=== PATIENT | male | born 1950 | race Hispanic/Latino ===

== ENCOUNTER 2022-10-07 09:02 | Emergency (ER) | payer OTHER ==
--- OUTSIDE RECORDS SUMMARY | 2022-10-07 09:09 | XMS REPORT | Continuity of Care Document ---
:1950 Author Organization Formerly [facility] t Address [address] [place] [address] Care Team Providers Name Role Phone Soledad Villagran Primary Care Physician DOC SALAZAR Attending Clinician Unavailable PARVIZ PALOMINO Attending Clinician Unavailable JIMI BAKER Attending Clinician Unavailable EZEKIEL JOHNSON Attending Clinician Unavailable Soledad Villagran Attending Clinician Jimi Baker MD Attending Clinician Doctor Unassigned, [place] Attending Clinician Unavailable Chiqui Parrish Attending Clinician Rogelio Capellan MD Attending Clinician Ezekiel Johnson MD Attending Clinician 2, [facility] Attending Clinician Unavailable CHIQUI KEARNEY Attending Clinician Unavailable Lalitha Sexton MD Attending Clinician Parviz Palomino MD Attending Clinician SOLEDAD ALVES Attending Clinician Unavailable Hilario Lopez MD Attending Clinician ROGELIO CAPELLAN Attending Clinician Unavailable MEG DALLAS Attending Clinician Unavailable Meg Bennett Attending Clinician CYNDEE MEDINA Attending Clinician Chel mike Monroe RN, Claude Lemus Attending Clinician Unavailable Sky HOUSTON, Zohreh Bah Attending Clinician Unavailable OBEY BARROS Attending Clinician Unavailable Keith Casarez MD Attending Clinician [phone] KEITH CASAREZ Attending Clinician Unavailable FELIZ BILL Attending Clinician Unavailable Doc Salazar MD Attending Clinician Only, Ad[facility] Test Attending Clinician Unavailable Cyndee Medina MD Attending Clinician Lab, Ad[facility] Fam Pob I Attending Clinician Unavailable Dagoberto Mason MD Attending Clinician Sukh Laureano DO Attending Clinician DOC SALAZAR Admitting Clinician Unavailable PARVIZ PALOMINO Admitting Clinician Unavailable Doc Salazar MD Admitting Clinician Payers Payer Name Policy Type Policy Number Effective Date Expiration Date He duvall DANISH/MILTONP [id number] 2020 MEDICARE ADVANTAGE 00:00:00 Problems Condition Condition Condition Status Onset Resolution Last Treating Co mments Source Name Details Category Date Date Treatment Clinician Date Erectile Erectile Disease Active Unive rs dysfunctio dysfunctio 6-03 it y of n, n, 00:00: [place] unspecifie unspecifie 00 Me dical d erectile d erectile Br anch dysfunctio dysfunctio n type n type Primary Primary Disease Active Univers hypertensi hypertensi 6-03 it y of on on 00:00: [place] [facility] LPRD LPRD Disease Active Univers (laryngoph (laryngoph 2-10 it y of aryngeal aryngeal 00:00: [place] reflux reflux 00 Medical disease) disease) Branch Fatty Fatty Disease Active Univers liver liver 4-28 ity of 00:00: [place] [facility] Abnormal Abnormal Disease Active Unive rs liver liver 4-14 ity of function function 00:00: [place] tests tests 00 Medical Branch Other Other Disease Active Univers hyperlipid hyperlipid 4-12 it y of emia emia 00:00: [place] [facility] Elevated Elevated Disease Active Overview: Un lino prostate prostate 3-31 Formatt[place] ity of specific specific 00:00: g of this [place] as antigen antigen 00 note Medical (PSA) (PSA) might be Branch different from the original. Added automatic ally from request for surgery [id number] Sensorineu Sensorineu Disease Active U nivers ral ral 3-13 ity of hearing hearing 00:00: [place] loss loss 00 Medical [place] Chronic Chronic Disease Active Univers vertigo vertigo 3-13 ity of 00:00: [place] 00 [facility] Coronary Coronary Disease Active Unive rs artery artery ity of disease disease [facility] History of History of Disease Active U nivers acute acute ity of myocardial [facility] [place] [facility] All[facility]ies, Adverse Reactions, Alerts Allergy Allergy Status Severity Reaction(s) Onset Inactive Treating Comm ents Source Name Type Date Date Clinician NO KNOWN Drug Active Univers ALLERGIE Class ity of S [facility] Social History Social Habit Start Date Stop Date Quantity Comments Source Gender identity [facility] Sexual orientation [facility] to 2022-08-07 2022-08-17 Not sure [facility] SARS-CoV-2 (event) 00:00:00 12:36:00 [facility] Alcohol intake 2022-03-26 2022-03-26 1.43 /d University 00:00:00 00:00:00 [facility] History of Social 2022-03-26 2022-03-26 Univers ity of function 00:00:00 00:00:00 [facility] Tobacco use and 2020-01-07 2020-01-07 Smokeless Universit y of exposure 00:00:00 00:00:00 tobacco non-user [facility] Sex Ass[birth year] Universit y of 00:00:00 00:00:00 [facility] Smoking Status Start Date Stop Date Source Never smoked tobacco [facility] Medications Ordered Filled Start Stop Current Ordering Indication Dosage Frequency Signature Comments Components Source Medication Medication Date Date Medication? Clinician (SIG) Name Name ATORVASTATI Yes [id number] TAKE 1 Univers N 80 mg 7-10 TABLET BY ity of tablet 00:00: MOUTH AT [place] 00 BEDTIME . [facility] Branch T REQUIRED FOR FUTURE REFILLS atorvastati Yes [id number] 80mg Take 1 Univers n 80 mg 6-01 tablet by ity of tablet 00:00: mouth at [place] [address] bedtime. Medical MUST BE Branch SEEN FOR FURTHER REFILLS atorvastati Yes [id number] 80mg Take 1 Univers n 80 mg 6-01 tablet by ity of tablet 00:00: mouth at [place] 00 bedtime. Medical MUST BE Branch SEEN FOR FURTHER REFILLS atorvastati 2022- No [id number] 80mg Take 1 Univers n 80 mg 6-01 07-10 tablet by ity of tablet 00:00: 00:00 mouth at [place] 00 :00 bedtime. Medical MUST BE Branch SEEN FOR FURTHER REFILLS atorvastati Yes [id number] 80mg Take 1 Univers n 80 mg 4-25 tablet by ity of tablet 00:00: mouth at [place] [address] bedtime. Medical MUST BE Branch SEEN FOR FURTHER REFILLS atorvastati 2022- No [id number] 80mg Take 1 Univers n 80 mg 4-25 06- tablet by ity of tablet 00:00: 00:00 mouth at [place] 00 :00 bedtime. Medical MUST BE Branch SEEN FOR FURTHER REFILLS metoprolol Yes [id number] 12.5mg Take 0.5 Univers tartrate 25 4-24 tablets by it y of mg tablet 00:00: mouth [place] (two) Medical times Branch daily. metoprolol Yes [id number] 12.5mg Take 0.5 Univers tartrate 25 4-24 tablets by it y of mg tablet 00:00: mouth [place] (two) Medical times Branch daily. metoprolol 0 Yes [id number] 12.5mg Take 0.5 Univers tartrate 25 4-24 tablets by it y of mg tablet 00:00: mouth [place] (two) Medical times Branch daily. TADALAFIL Yes TAKE 1 Univer s 20 mg 4-24 TABLET BY ity of tablet 00:00: MOUTH 00 EVERY 72 Medical HOURS Branch NEEDED FOR ERECTILE DYSFUNCTIO N ( NO MORE THAN 1 TABLET EVERY 3 DAYS DIRECTED ) metoprolol Yes [id number] 12.5mg Take 0.5 Univers tartrate 25 4-24 tablets by it y of mg tablet 00:00: mouth (two) Medical times Branch daily. TADALAFIL 2023-0 Yes TAKE 1 Univer s 20 mg 4-24 TABLET BY ity of tablet 00:00: MOUTH EVERY 72 Medical HOURS Branch NEEDED FOR ERECTILE DYSFUNCTIO N ( NO MORE THAN 1 TABLET EVERY 3 DAYS DIRECTED ) metoprolol 2023-0 Yes [id number] 12.5mg Take 0.5 Univers tartrate 25 4-24 tablets by it y of mg tablet 00:00: mouth (two) Medical times Branch daily. TADALAFIL 2023-0 Yes TAKE 1 Univer s 20 mg 4-24 TABLET BY ity of tablet 00:00: MOUTH EVERY 72 Medical HOURS Branch NEEDED FOR ERECTILE DYSFUNCTIO N ( NO MORE THAN 1 TABLET EVERY 3 DAYS DIRECTED ) metoprolol 2023-0 Yes [id number] 12.5mg Take 0.5 Univers tartrate 25 4-24 tablets by it y of mg tablet 00:00: mouth (two) Medical times Branch daily. TADALAFIL 2023-0 Yes TAKE 1 Univer s 20 mg 4-24 TABLET BY ity of tablet 00:00: MOUTH EVERY 72 Medical HOURS Branch NEEDED FOR ERECTILE DYSFUNCTIO N ( NO MORE THAN 1 TABLET EVERY 3 DAYS DIRECTED ) metoprolol 2023-0 Yes [id number] 12.5mg Take 0.5 Univers tartrate 25 4-24 tablets by it y of mg tablet 00:00: (two) Medical times Branch daily. TADALAFIL 2023-0 Yes TAKE 1 Univer s 20 mg 4-24 TABLET BY ity of tablet 00:00: MOUTH EVERY 72 Medical HOURS Branch NEEDED FOR ERECTILE DYSFUNCTIO N ( NO MORE THAN 1 TABLET EVERY 3 DAYS DIRECTED ) metoprolol 2023-0 Yes [id number] 12.5mg Take 0.5 Univers tartrate 25 4-24 tablets by it y of mg tablet 00:00: mouth (two) Medical times Branch daily. TADALAFIL 2023-0 Yes TAKE 1 Univer s 20 mg 4-24 TABLET BY ity of tablet 00:00: MOUTH EVERY 72 Medical HOURS Branch NEEDED FOR ERECTILE DYSFUNCTIO N ( NO MORE THAN 1 TABLET EVERY 3 DAYS DIRECTED ) metoprolol 2022-0 Yes [id number] 12.5mg Take 0.5 Univers tartrate 25 3-17 tablets by it y of mg tablet 00:00: mouth 2 (two) Medical times Branch daily. metoprolol 0 Yes [id number] 12.5mg Take 0.5 Univers tartrate 25 3-17 tablets by it y of mg tablet 00:00: mouth 2 (two) Medical times Branch daily. metoprolol 2022- No [id number] 12.5mg Take 0.5 Univers tartrate 25 3-17 04-24 tablets by i ty of mg tablet 00:00: 00:[place] ([place] Medical times Branch daily. metoprolol 2022-0 3- No [id number] 12.5mg Take 0.5 Univers tartrate 25 3-17 04-24 tablets by i ty of mg tablet 00:00: 00:[place] (two[place] Medical times Branch daily. METOPROLOL Yes [id number] 12.5mg Take 0.5 Univers TARTRATE 25 2-17 tablets by it y of mg tablet 00:00: mouth 2 (two) Medical times Branch daily. METOPROLOL 0 2022- No [id number] 12.5mg Take 0.5 Univers TARTRATE 25 2-17 03-17 tablets by i ty of mg tablet 00:00: 00:00 [place] (two[place] Medical times Branch daily. triamcinolo Yes [id number] Apply to Univers ne 2-14 area(s) 2 ity of acetonide 00:00: (two) [place] 0.1 % cream 00 times Medical daily. Branch hydrocortis Yes [id number] Apply to Univers one 2.5 % 2-14 area(s) 2 ity o f cream 00:00: (two) [place] 00 times Medical daily as Branch needed for Rash or Itching. Stop when clear, restart if rash returns. ketoconazol Yes [id number] Apply to Univers e 2 % cream 2-14 area(s) ity o f 00:00: daily. [place] [address] Medical Branch triamcinolo 2023-0 Yes [id number] Apply to Univers ne 2-14 area(s) 2 ity of acetonide 00:00: (two) [place] 0.1 % cream 00 times Medical daily. Branch hydrocortis 2023-0 Yes [id number] Apply to Univers one 2.5 % 2-14 area(s) 2 ity o f cream 00:00: (two) [place] 00 times Medical daily as Branch needed for Rash or Itching. Stop when clear, restart if rash returns. ketoconazol 2023-0 Yes [id number] Apply to Univers e 2 % cream 2-14 area(s) ity o f 00:00: daily. [place] [facility] triamcinolo 2023-0 Yes [id number] Apply to Univers ne 2-14 area(s) 2 ity of acetonide 00:00: (two) [place] 0.1 % cream 00 times Medical daily. Branch hydrocortis 2023-0 Yes [id number] Apply to Univers one 2.5 % 2-14 area(s) 2 ity o f cream 00:00: (two) [place] 00 times Medical daily as Branch needed for Rash or Itching. Stop when clear, restart if rash returns. ketoconazol 3-0 Yes [id number] Apply to Univers e 2 % cream 2-14 area(s) ity o f 00:00: daily. [place] [facility] triamcinolo 2023-0 Yes [id number] Apply to Univers ne 2-14 area(s) 2 ity of acetonide 00:00: (two) [place] 0.1 % cream 00 times Medical daily. Branch hydrocortis 2023-0 Yes [id number] Apply to Univers one 2.5 % 2-14 area(s) 2 ity o f cream 00:00: (two) [place] 00 times Medical daily as Branch needed for Rash or Itching. Stop when clear, restart if rash returns. ketoconazol 2023-0 Yes [id number] Apply to Univers e 2 % cream 2-14 area(s) ity o f 00:00: daily. [place] [facility] triamcinolo 2023-0 Yes [id number] Apply to Univers ne 2-14 area(s) 2 ity of acetonide 00:00: (two) [place] 0.1 % cream 00 times Medical daily. Branch hydrocortis 2023-0 Yes [id number] Apply to Univers one 2.5 % 2-14 area(s) 2 ity o f cream 00:00: (two) [place] 00 times Medical daily as Branch needed for Rash or Itching. Stop when clear, restart if rash returns. ketoconazol 2023-0 Yes [id number] Apply to Univers e 2 % cream 2-14 area(s) ity o f 00:00: daily. [place] [facility] triamcinolo 2023-0 Yes [id number] Apply to Univers ne 2-14 area(s) 2 ity of acetonide 00:00: (two) [place] 0.1 % cream 00 times Medical daily. Branch hydrocortis 2023-0 Yes [id number] Apply to Univers one 2.5 % 2-14 area(s) 2 ity o f cream 00:00: (two) [place] 00 times Medical daily as Branch needed for Rash or Itching. Stop when clear, restart if rash returns. ketoconazol 2023-0 Yes [id number] Apply to Univers e 2 % cream 2-14 area(s) ity o f 00:00: daily. [place] [facility] triamcinolo 2023-0 Yes [id number] Apply to Univers ne 2-14 area(s) 2 ity of acetonide 00:00: (two) [place] 0.1 % cream 00 times Medical daily. Branch hydrocortis 2023-0 Yes [id number] Apply to Univers one 2.5 % 2-14 area(s) 2 ity o f cream 00:00: (two) [place] 00 times Medical daily as Branch needed for Rash or Itching. Stop when clear, restart if rash returns. ketoconazol 2023-0 Yes [id number] Apply to Univers e 2 % cream 2-14 area(s) ity o f 00:00: daily. [place] [facility] triamcinolo 2023-0 Yes [id number] Apply to Univers ne 2-14 area(s) 2 ity of acetonide 00:00: (two) [place] 0.1 % cream 00 times Medical daily. Branch hydrocortis 2023-0 Yes [id number] Apply to Univers one 2.5 % 2-14 area(s) 2 ity o f cream 00:00: (two) [place] 00 times Medical daily as Branch needed for Rash or Itching. Stop when clear, restart if rash returns. ketoconazol 2023-0 Yes [id number] Apply to Univers e 2 % cream 2-14 area(s) ity o f 00:00: daily. [place] [facility] triamcinolo 2023-0 Yes [id number] Apply to Univers ne 2-14 area(s) 2 ity of acetonide 00:00: (two) [place] 0.1 % cream 00 times Medical daily. Branch hydrocortis 2023-0 Yes [id number] Apply to Univers one 2.5 % 2-14 area(s) 2 ity o f cream 00:00: (two) [place] 00 times Medical daily as Branch needed for Rash or Itching. Stop when clear, restart if rash returns. ketoconazol 2023-0 Yes [id number] Apply to Univers e 2 % cream 2-14 area(s) ity o f 00:00: daily. [place] [facility] triamcinolo 2023-0 Yes [id number] Apply to Univers ne 2-14 area(s) 2 ity of acetonide 00:00: (two) [place] 0.1 % cream 00 times Medical daily. Branch hydrocortis 2023-0 Yes [id number] Apply to Univers one 2.5 % 2-14 area(s) 2 ity o f cream 00:00: (two) [place] 00 times Medical daily as Branch needed for Rash or Itching. Stop when clear, restart if rash returns. ketoconazol 2023-0 Yes [id number] Apply to Univers e 2 % cream 2-14 area(s) ity o f 00:00: daily. [place] [facility] triamcinolo 2023-0 Yes [id number] Apply to Univers ne 2-14 area(s) 2 ity of acetonide 00:00: (two) [place] 0.1 % cream 00 times Medical daily. Branch hydrocortis 2023-0 Yes [id number] Apply to Univers one 2.5 % 2-14 area(s) 2 ity o f cream 00:00: (two) [place] 00 times Medical daily as Branch needed for Rash or Itching. Stop when clear, restart if rash returns. ketoconazol 2023-0 Yes [id number] Apply to Univers e 2 % cream 2-14 area(s) ity o f 00:00: daily. Medical Branch triamcinolo 2023-0 Yes [id number] Apply to Univers ne 2-14 area(s) 2 ity of acetonide 00:00: (two) [place] 0.1 % cream 00 times Medical daily. Branch hydrocortis 3-0 Yes [id number] Apply to Univers one 2.5 % 2-14 area(s) 2 ity o f cream 00:00: (two) [place] 00 times Medical daily as Branch needed for Rash or Itching. Stop when clear, restart if rash returns. ketoconazol 3-0 Yes [id number] Apply to Univers e 2 % cream 2-14 area(s) ity o f 00:00: daily. Medical Branch triamcinolo 3-0 Yes [id number] Apply to Univers ne 2-14 area(s) 2 ity of acetonide 00:00: (two) [place] 0.1 % cream 00 times Medical daily. Branch hydrocortis 3-0 Yes [id number] Apply to Univers one 2.5 % 2-14 area(s) 2 ity o f cream 00:00: (two) [place] 00 times Medical daily as Branch needed for Rash or Itching. Stop when clear, restart if rash returns. ketoconazol 3-0 Yes [id number] Apply to Univers e 2 % cream 2-14 area(s) ity o f 00:00: daily. Medical Branch tadalafiL 2021-1 Yes 20mg Take 1 Univer s 20 mg 0-12 tablet by ity of tablet 00:00: mouth as [place] 00 needed for Medical Erectile Branch dysfunctio n (No more than 1 tablet every 3 days). tadalafiL 2022-1 Yes 20mg Take 1 Univer s 20 mg 0-12 tablet by ity of tablet 00:00: mouth as [place] 00 needed for Medical Erectile Branch dysfunctio n (No more than 1 tablet every 3 days). tadalafiL 2-1 Yes 20mg Take 1 Univer s 20 mg 0-12 tablet by ity of tablet 00:00: mouth as [place] 00 needed for Medical Erectile Branch dysfunctio n (No more than 1 tablet every 3 days). tadalafiL 2021-03 Yes 20mg Take 1 Univer s 20 mg 0-12 tablet by ity of tablet 00:00: mouth as [place] 00 needed for Medical Erectile Branch dysfunctio n (No more than 1 tablet every 3 days). tadalafiL 2021-03 Yes 20mg Take 1 Univer s 20 mg 0-12 tablet by ity of tablet 00:00: mouth as [place] 00 needed for Medical Erectile Branch dysfunctio n (No more than 1 tablet every 3 days). tadalafiL 2021-03 Yes 20mg Take 1 Univer s 20 mg 0-12 tablet by ity of tablet 00:00: mouth as [place] 00 needed for Medical Erectile Branch dysfunctio n (No more than 1 tablet every 3 days). tadalafiL 2021-03 Yes 20mg Take 1 Univer s 20 mg 0-12 tablet by ity of tablet 00:00: mouth as [place] 00 needed for Medical Erectile Branch dysfunctio n (No more than 1 tablet every 3 days). tadalafiL 2021-03 Yes 20mg Take 1 Univer s 20 mg 0-12 tablet by ity of tablet 00:00: mouth as [place] 00 needed for Medical Erectile Branch dysfunctio n (No more than 1 tablet every 3 days). tadalafiL 2021-03 Yes 20mg Take 1 Univer s 20 mg 0-12 tablet by ity of tablet 00:00: mouth as [place] 00 needed for Medical Erectile Branch dysfunctio n (No more than 1 tablet every 3 days). tadalafiL 2021-03 Yes 20mg Take 1 Univer s 20 mg 0-12 tablet by ity of tablet 00:00: mouth as [place] 00 needed for Medical Erectile Branch dysfunctio n (No more than 1 tablet every 3 days). tadalafiL 2021-1 Yes 20mg Take 1 Univer s 20 mg 0-12 tablet by ity of tablet 00:00: mouth as [place] 00 needed for Medical Erectile Branch dysfunctio n (No more than 1 tablet every 3 days). tadalafiL 2021- Yes 20mg Take 1 Univer s 20 mg 0-12 tablet by ity of tablet 00:00: mouth as [place] 00 needed for Medical Erectile Branch dysfunctio n (No more than 1 tablet every 3 days). tadalafiL 2-1 Yes 20mg Take 1 Univer s 20 mg 0-12 tablet by ity of tablet 00:00: mouth as [place] 00 needed for Medical Erectile Branch dysfunctio n (No more than 1 tablet every 3 days). tadalafiL 2021-1 Yes 20mg Take 1 Univer s 20 mg 0-12 tablet by ity of tablet 00:00: mouth as [place] 00 needed for Medical Erectile Branch dysfunctio n (No more than 1 tablet every 3 days). tadalafiL 2021-1 2022- No 20mg Take 1 Unive rs 20 mg 0-12 04-24 tablet by ity of tablet 00:00: 00:00 mouth as [place] 00 :00 needed for Medical Erectile Branch dysfunctio n (No more than 1 tablet every 3 days). tadalafiL 2022-0 2022- No 20mg Take 20 mg U nivers 20 mg 6-06 06-06 by mouth ity of tablet 17:02: 00:00 as needed [place] 50 :00 for Medical Erectile Branch dysfunctio n. tadalafiL 2022-0 Yes 20mg Take 1 Univer s 20 mg 6-06 tablet by ity of tablet 00:00: mouth as [place] 00 needed for Medical Erectile Branch dysfunctio n (No more than 1 tablet every 3 days). tadalafiL 2022-0 Yes 20mg Take 1 Univer s 20 mg 6-06 tablet by ity of tablet 00:00: mouth as [place] 00 needed for Medical Erectile Branch dysfunctio n (No more than 1 tablet every 3 days). tadalafiL 2022-0 Yes 20mg Take 1 Univer s 20 mg 6-06 tablet by ity of tablet 00:00: mouth as [place] 00 needed for Medical Erectile Branch dysfunctio n (No more than 1 tablet every 3 days). tadalafiL 2022-0 Yes 20mg Take 1 Univer s 20 mg 6-06 tablet by ity of tablet 00:00: mouth as [place] 00 needed for Medical Erectile Branch dysfunctio n (No more than 1 tablet every 3 days). tadalafiL 2022-0 Yes 20mg Take 1 Univer s 20 mg 6-06 tablet by ity of tablet 00:00: mouth as [place] 00 needed for Medical Erectile Branch dysfunctio n (No more than 1 tablet every 3 days). tadalafiL 2022-0 Yes 20mg Take 1 Univer s 20 mg 6-06 tablet by ity of tablet 00:00: mouth as [place] 00 needed for Medical Erectile Branch dysfunctio n (No more than 1 tablet every 3 days). tadalafiL 2022-0 Yes 20mg Take 1 Univer s 20 mg 6-06 tablet by ity of tablet 00:00: mouth as [place] 00 needed for Medical Erectile Branch dysfunctio n (No more than 1 tablet every 3 days). tadalafiL 2022-0 2022- No 20mg Take 1 Unive rs 20 mg 6-06 10-12 tablet by ity of tablet 00:00: 00:00 mouth as [place] 00 :00 needed for Medical Erectile Branch dysfunctio n (No more than 1 tablet every 3 days). aspirin 2021-0 Yes 81mg Take 81 mg Univ ers (ADULT LOW 6-03 by mouth ity o f DOSE 15:12: daily. [place] ASPIRIN) 81 31 Medical mg EC Branch tablet ascorbic 2021-0 Yes Take by Univer s acid 6-03 mouth ity of (VITAMIN C 15:12: daily. [place] ORAL) 31 Medical Branch ZINC ORAL 2021-0 Yes Take by Unive rs 6-03 mouth. ity of 15:12: [place] 31 Medical Branch calcium 2021-0 Yes Take by Univers carbonate/v 6-03 mouth ity of itamin D3 15:12: daily. [place] (VITAMIN 31 Medical D-3 ORAL) Branch MAGNESIUM 2021-0 Yes Take by Unive rs ORAL 6-03 mouth. ity of 15:12: [place] 31 Medical Branch aspirin 2-0 Yes 81mg Take 81 mg Univ ers (ADULT LOW 6-03 by mouth ity o f DOSE 15:12: daily. [place] ASPIRIN) 81 31 Medical mg EC Branch tablet ascorbic 2-0 Yes Take by Univer s acid 6-03 mouth ity of (VITAMIN C 15:12: daily. [place] ORAL) 31 Medical Branch ZINC ORAL 2-0 Yes Take by Unive rs 6-03 mouth. ity of 15:12: [place] 31 Medical Branch calcium 2-0 Yes Take by Univers carbonate/v 6-03 mouth ity of itamin D3 15:12: daily. [place] (VITAMIN 31 Medical D-3 ORAL) Branch MAGNESIUM 2021-0 Yes Take by Unive rs ORAL 6-03 mouth. ity of 15:12: [place] [address] Medical Branch aspirin 2021-0 Yes 81mg Take 81 mg Univ ers (ADULT LOW 6-03 by mouth ity o f DOSE 15:12: daily. [place] ASPIRIN) 81 31 Medical mg EC Branch tablet ascorbic 2021-0 Yes Take by Univer s acid 6-03 mouth ity of (VITAMIN C 15:12: daily. [place] ORAL) 31 Medical Branch ZINC ORAL 2021-0 Yes Take by Unive rs 6-03 mouth. ity of 15:12: [place] [address] Medical Branch calcium 2021-0 Yes Take by Univers carbonate/v 6-03 mouth ity of itamin D3 15:12: daily. [place] (VITAMIN 31 Medical D-3 ORAL) Branch MAGNESIUM 2021-0 Yes Take by Unive rs ORAL 6-03 mouth. ity of 15:12: [place] [address] Medical Branch aspirin 2021-0 Yes 81mg Take 81 mg Univ ers (ADULT LOW 6-03 by mouth ity o f DOSE 15:12: daily. [place] ASPIRIN) 81 31 Medical mg EC Branch tablet ascorbic 2021-0 Yes Take by Univer s acid 6-03 mouth ity of (VITAMIN C 15:12: daily. [place] ORAL) Medical Branch ZINC ORAL 2021-0 Yes Take by Unive rs 6-03 mouth. ity of 15:12: [place] [address] Medical Branch calcium 2021-0 Yes Take by Univers carbonate/v 6-03 mouth ity of itamin D3 15:12: daily. [place] (VITAMIN 31 Medical D-3 ORAL) Branch MAGNESIUM 2021-0 Yes Take by Unive rs ORAL 6-03 mouth. ity of 15:12: [place] [address] Medical Branch aspirin 2021-0 Yes 81mg Take 81 mg Univ ers (ADULT LOW 6-03 by mouth ity o f DOSE 15:12: daily. [place] ASPIRIN) 81 31 Medical mg EC Branch tablet ascorbic 2021-0 Yes Take by Univer s acid 6-03 mouth ity of (VITAMIN C 15:12: daily. [place] ORAL) Medical Branch ZINC ORAL 2021-0 Yes Take by Unive rs 6-03 mouth. ity of 15:12: [place] [address] Medical Branch calcium 2021-0 Yes Take by Univers carbonate/v 6-03 mouth ity of itamin D3 15:12: daily. [place] (VITAMIN 31 Medical D-3 ORAL) Branch MAGNESIUM 0 Yes Take by Unive rs ORAL 6-03 mouth. ity of 15:12: [place] [address] Medical Branch aspirin 0 Yes 81mg Take 81 mg Univ ers (ADULT LOW 6-03 by mouth ity o f DOSE 15:12: daily. [place] ASPIRIN) 81 31 Medical mg EC Branch tablet ascorbic 0 Yes Take by Univer s acid 6-03 mouth ity of (VITAMIN C 15:12: daily. [place] ORAL) Medical Branch ZINC ORAL 0 Yes Take by Unive rs 6-03 mouth. ity of 15:12: [place] [address] Medical Branch calcium 0 Yes Take by Univers carbonate/v 6-03 mouth ity of itamin D3 15:12: daily. [place] (VITAMIN 31 Medical D-3 ORAL) Branch MAGNESIUM 0 Yes Take by Unive rs ORAL 6-03 mouth. ity of 15:12: [place] [address] Medical Branch aspirin 0 Yes 81mg Take 81 mg Univ ers (ADULT LOW 6-03 by mouth ity o f DOSE 15:12: daily. [place] ASPIRIN) 81 31 Medical mg EC Branch tablet ascorbic 0 Yes Take by Univer s acid 6-03 mouth ity of (VITAMIN C 15:12: daily. [place] ORAL) Medical Branch ZINC ORAL 0 Yes Take by Unive rs 6-03 mouth. ity of 15:12: [place] [address] Medical Branch calcium 0 Yes Take by [facility] carbonate/v 6-03 mouth ity of itamin D3 15:12: daily. [place] (VITAMIN 31 Medical D-3 ORAL) Branch MAGNESIUM 0 Yes Take by Unive rs ORAL 6-03 mouth. ity of 15:12: [place] [address] Medical Branch aspirin 0 Yes 81mg Take 81 mg Univ ers (ADULT LOW 6-03 by mouth ity o f DOSE 15:12: daily. [place] ASPIRIN) 81 31 Medical mg EC Branch tablet ascorbic 2021-0 Yes Take by [facility] acid 6-03 mouth ity of (VITAMIN C 15:12: daily. [place] ORAL) Medical Branch ZINC ORAL 2021-0 Yes Take by Unive rs 6-03 mouth. ity of 15:12: [place] [address] Medical Branch calcium 0 Yes Take by [facility] carbonate/v 6-03 mouth ity of itamin D3 15:12: daily. [place] (VITAMIN 31 Medical D-3 ORAL) Branch MAGNESIUM 0 Yes Take by Unive rs ORAL 6-03 mouth. ity of 15:12: [place] [address] Medical Branch aspirin 0 Yes 81mg Take 81 mg Univ ers (ADULT LOW 6-03 by mouth ity o f DOSE 15:12: daily. [place] ASPIRIN) 81 31 Medical mg EC Branch tablet ascorbic 0 Yes Take by [facility]iver [facility] acid 6-03 mouth ity of (VITAMIN C 15:12: daily. [place] ORAL) Medical Branch ZINC ORAL 0 Yes Take by [facility]ive rs 6-03 mouth. ity of 15:12: [place] [address] Medical Branch calcium 0 Yes Take by [facility] carbonate/v 6-03 mouth ity of itamin D3 15:12: daily. [place] (VITAMIN 31 Medical D-3 ORAL) Branch MAGNESIUM 0 Yes Take by [facility]ive rs ORAL 6-03 mouth. ity of 15:12: [place] [address] Medical Branch aspirin 0 Yes 81mg Take 81 mg Univ ers (ADULT LOW 6-03 by mouth ity o f DOSE 15:12: daily. [place] ASPIRIN) 81 31 Medical mg EC Branch tablet ascorbic 2021-0 Yes Take by Univer s acid 6-03 mouth ity of (VITAMIN C 15:12: daily. [place] ORAL) Medical Branch ZINC ORAL 0 Yes Take by Unive rs 6-03 mouth. ity of 15:12: [place] [address] Medical Branch calcium 0 Yes Take by [facility] carbonate/v 6-03 mouth ity of itamin D3 15:12: daily. [place] (VITAMIN 31 Medical D-3 ORAL) Branch MAGNESIUM 0 Yes Take by [facility]ive rs ORAL 6-03 mouth. ity of 15:12: [place] [address] Medical Branch aspirin 2021-0 Yes 81mg Take 81 mg Univ ers (ADULT LOW 6-03 by mouth ity o f DOSE 15:12: daily. [place] ASPIRIN) 81 31 Medical mg EC [facility] tablet ascorbic 2021-0 Yes Take by Univer s acid 6-03 mouth ity of (VITAMIN C 15:12: daily. [place] ORAL) Medical Branch ZINC ORAL 2021-0 Yes Take by Unive rs 6-03 mouth. ity of 15:12: [place] [address] Medical Branch calcium 0 Yes Take by [facility] carbonate/v 6-03 mouth ity of itamin D3 15:12: daily. [place] (VITAMIN 31 Medical D-3 ORAL) Branch MAGNESIUM 0 Yes Take by [facility]ive rs ORAL 6-03 mouth. ity of 15:12: [place] [address] Medical Branch aspirin 0 Yes 81mg Take 81 mg Univ ers (ADULT LOW 6-03 by mouth ity o f DOSE 15:12: daily. [place] ASPIRIN) 81 31 Medical mg EC Branch tablet ascorbic 0 Yes Take by Univer s acid 6-03 mouth ity of (VITAMIN C 15:12: daily. [place] ORAL) Medical Branch ZINC ORAL 0 Yes Take by Unive rs 6-03 mouth. ity of 15:12: [place] [address] [facility] [place] calcium 0 Yes Take by [facility] carbonate/v 6-03 mouth ity of itamin D3 15:12: daily. [place] (VITAMIN 31 Medical D-3 ORAL) Branch MAGNESIUM 0 Yes Take by [facility] rs ORAL 6-03 mouth. ity of 15:12: [place] [address] Medical Branch aspirin 0 Yes 81mg Take 81 mg Univ ers (ADULT LOW 6-03 by mouth ity o f DOSE 15:12: daily. [place] ASPIRIN) 81 31 Medical mg EC Branch tablet ascorbic 2021-0 Yes Take by [facility]iver [facility] acid 6-03 mouth ity of (VITAMIN C 15:12: daily. [place] ORAL) Medical Branch ZINC ORAL 0 Yes Take by Unive rs 6-03 mouth. ity of 15:12: [place] [address] Medical Branch calcium 0 Yes Take by [facility] carbonate/v 6-03 mouth ity of itamin D3 15:12: daily. [place] (VITAMIN 31 Medical D-3 ORAL) Branch MAGNESIUM 0 Yes Take by [facility]ive rs ORAL 6-03 mouth. ity of 15:12: [place] [address] Medical Branch aspirin 2021-0 Yes 81mg Take 81 mg Univ ers (ADULT LOW 6-03 by mouth ity o f DOSE 15:12: daily. [place] ASPIRIN) 81 31 Medical mg EC Branch tablet ascorbic 2021-0 Yes Take by Univer s acid 6-03 mouth ity of (VITAMIN C 15:12: daily. [place] ORAL) Medical Branch ZINC ORAL 0 Yes Take by Unive rs 6-03 mouth. ity of 15:12: [place] [address] Medical Branch calcium 2021-0 Yes Take by [facility] carbonate/v 6-03 mouth ity of itamin D3 15:12: daily. [place] (VITAMIN 31 Medical D-3 ORAL) Branch MAGNESIUM 2021-0 Yes Take by [facility]ive rs ORAL 6-03 mouth. ity of 15:12: [place] [address] Medical Branch aspirin 2021-0 Yes 81mg Take 81 mg Univ ers (ADULT LOW 6-03 by mouth ity o f DOSE 15:12: daily. [place] ASPIRIN) 81 31 Medical mg EC [facility] tablet ascorbic 2021-0 Yes Take by Univer s acid 6-03 mouth ity of (VITAMIN C 15:12: daily. [place] ORAL) 31 Medical Branch ZINC ORAL 2021-0 Yes Take by Unive rs 6-03 mouth. ity of 15:12: [place] [address] Medical Branch calcium 2021-0 Yes Take by [facility] carbonate/v 6-03 mouth ity of itamin D3 15:12: daily. [place] (VITAMIN 31 Medical D-3 ORAL) Branch MAGNESIUM 0 Yes Take by Unive rs ORAL 6-03 mouth. ity of 15:12: [place] [address] [facility] Branch aspirin 0 Yes 81mg Take 81 mg Univ ers (ADULT LOW 6-03 by mouth ity o f DOSE 15:12: daily. [place] ASPIRIN) 81 31 Medical mg EC Branch tablet ascorbic 2021-0 Yes Take by Univer s acid 6-03 mouth ity of (VITAMIN C 15:12: daily. [place] ORAL) 31 Medical Branch ZINC ORAL 2021-0 Yes Take by Unive rs 6-03 mouth. ity of 15:12: [place] [address] Medical Branch calcium 2021-0 Yes Take by [facility] carbonate/v 6-03 mouth ity of itamin D3 15:12: daily. [place] (VITAMIN 31 Medical D-3 ORAL) Branch MAGNESIUM 2021-0 Yes Take by [facility]ive rs ORAL 6-03 mouth. ity of 15:12: [place] [address] Medical Branch aspirin 2021-0 Yes 81mg Take 81 mg Univ ers (ADULT LOW 6-03 by mouth ity o f DOSE 15:12: daily. [place] ASPIRIN) 81 31 Medical mg EC Branch tablet ascorbic 2021-0 Yes Take by Univer s acid 6-03 mouth ity of (VITAMIN C 15:12: daily. [place] ORAL) 31 Medical Branch ZINC ORAL 2021-0 Yes Take by Unive rs 6-03 mouth. ity of 15:12: [place] [address] Medical Branch calcium 2021-0 Yes Take by [facility] carbonate/v 6-03 mouth ity of itamin D3 15:12: daily. [place] (VITAMIN 31 Medical D-3 ORAL) Branch MAGNESIUM 2021-0 Yes Take by [facility] rs ORAL 6-03 mouth. ity of 15:12: [place] [address] Medical Branch aspirin 2021-0 Yes 81mg Take 81 mg Univ ers (ADULT LOW 6-03 by mouth ity o f DOSE 15:12: daily. [place] ASPIRIN) 81 31 Medical mg EC [facility] tablet ascorbic 2021-0 Yes Take by [facility]iver s acid 6-03 mouth ity of (VITAMIN C 15:12: daily. [place] ORAL) 31 Medical Branch ZINC ORAL 2021-0 Yes Take by Unive rs 6-03 mouth. ity of 15:12: [place] [address] Medical Branch calcium 2021-0 Yes Take by [facility] carbonate/v 6-03 mouth ity of itamin D3 15:12: daily. [place] (VITAMIN 31 Medical D-3 ORAL) Branch MAGNESIUM 2021-0 Yes Take by [facility]ive rs ORAL 6-03 mouth. ity of 15:12: [place] [address] Medical Branch aspirin 2021-0 Yes 81mg Take 81 mg Univ ers (ADULT LOW 6-03 by mouth ity o f DOSE 15:12: daily. [place] ASPIRIN) 81 31 Medical mg EC [facility] tablet ascorbic 2021-0 Yes Take by Univer s acid 6-03 mouth ity of (VITAMIN C 15:12: daily. [place] ORAL) 31 Medical Branch ZINC ORAL 2021-0 Yes Take by Unive rs 6-03 mouth. ity of 15:12: [place] [address] Medical Branch calcium 2021-0 Yes Take by [facility] carbonate/v 6-03 mouth ity of itamin D3 15:12: daily. [place] (VITAMIN 31 Medical D-3 ORAL) Branch MAGNESIUM 2021-0 Yes Take by Unive rs ORAL 6-03 mouth. ity of 15:12: [place] [address] Medical Branch aspirin 2021-0 Yes 81mg Take 81 mg Univ ers (ADULT LOW 6-03 by mouth ity o f DOSE 15:12: daily. [place] ASPIRIN) 81 31 Medical mg EC Branch tablet ascorbic 2022-0 Yes Take by Unive rs acid 6-03 mouth ity of (VITAMIN C 15:12: daily. [place] ORAL) 31 Medical Branch ZINC ORAL 2021-0 Yes Take by Unive rs 6-03 mouth. ity of 15:12: [place] [address] Medical Branch calcium 0 Yes Take by [facility] carbonate/v 6-03 mouth ity of itamin D3 15:12: daily. [place] (VITAMIN 31 Medical D-3 ORAL) Branch MAGNESIUM 0 Yes Take by Unive rs ORAL 6-03 mouth. ity of 15:12: [place] [address] Medical Branch aspirin 0 Yes 81mg Take 81 mg Univ ers (ADULT LOW 6-03 by mouth ity o f DOSE 15:12: daily. [place] ASPIRIN) 81 31 Medical mg EC Branch tablet ascorbic 2021-0 Yes Take by Univer s acid 6-03 mouth ity of (VITAMIN C 15:12: daily. [place] ORAL) Medical Branch ZINC ORAL 0 Yes Take by Unive rs 6-03 mouth. ity of 15:12: [place] [address] Medical Branch calcium 0 Yes Take by [facility] carbonate/v 6-03 mouth ity of itamin D3 15:12: daily. [place] (VITAMIN 31 Medical D-3 ORAL) Branch MAGNESIUM 0 Yes Take by Unive rs ORAL 6-03 mouth. ity of 15:12: [place] [address] Medical Branch aspirin 2021-0 Yes 81mg Take 81 mg Univ ers (ADULT LOW 6-03 by mouth ity o f DOSE 15:12: daily. [place] ASPIRIN) 81 31 Medical mg EC Branch tablet ascorbic 2021-0 Yes Take by Univer s acid 6-03 mouth ity of (VITAMIN C 15:12: daily. [place] ORAL) Medical Branch ZINC ORAL 2021-0 Yes Take by Unive rs 6-03 mouth. ity of 15:12: [place] [address] Medical Branch calcium 2021-0 Yes Take by [facility] carbonate/v 6-03 mouth ity of itamin D3 15:12: daily. [place] (VITAMIN 31 Medical D-3 ORAL) Branch MAGNESIUM 2021-0 Yes Take by Unive rs ORAL 6-03 mouth. ity of 15:12: [place] [address] Medical Branch aspirin 2-0 Yes 81mg Take 81 mg Univ ers (ADULT LOW 6-03 by mouth ity o f DOSE 15:12: daily. [place] ASPIRIN) 81 31 Medical mg EC Branch tablet ascorbic 2021-0 Yes Take by Univer s acid 6-03 mouth ity of (VITAMIN C 15:12: daily. [place] ORAL) 31 Medical Branch ZINC ORAL 2021-0 Yes Take by Unive rs 6-03 mouth. ity of 15:12: [place] [address] Medical Branch calcium 2021-0 Yes Take by [facility] carbonate/v 6-03 mouth ity of itamin D3 15:12: daily. [place] (VITAMIN 31 Medical D-3 ORAL) Branch MAGNESIUM 0 Yes Take by Unive rs ORAL 6-03 mouth. ity of 15:12: [place] [address] Medical Branch aspirin 2021-0 Yes 81mg Take 81 mg Univ ers (ADULT LOW 6-03 by mouth ity o f DOSE 15:12: daily. [place] ASPIRIN) 81 31 Medical mg EC Branch tablet ascorbic 2021-0 Yes Take by Univer s acid 6-03 mouth ity of (VITAMIN C 15:12: daily. [place] ORAL) 31 Medical Branch ZINC ORAL 2021-0 Yes Take by Unive rs 6-03 mouth. ity of 15:12: [place] [address] [facility] Branch calcium 2021-0 Yes Take by [facility] carbonate/v 6-03 mouth ity of itamin D3 15:12: daily. [place] (VITAMIN 31 Medical D-3 ORAL) Branch MAGNESIUM 2021-0 Yes Take by Unive rs ORAL 6-03 mouth. ity of 15:12: [place] [address] Medical Branch aspirin 2021-0 Yes 81mg Take 81 mg Univ ers (ADULT LOW 6-03 by mouth ity o f DOSE 15:12: daily. [place] ASPIRIN) 81 31 Medical mg EC Branch tablet ascorbic 2021-0 Yes Take by [facility]iver [facility] acid 6-03 mouth ity of (VITAMIN C 15:12: daily. [place] ORAL) 31 Medical Branch ZINC ORAL 2021-0 Yes Take by Unive rs 6-03 mouth. ity of 15:12: [place] [address] Medical Branch calcium 2021-0 Yes Take by [facility] carbonate/v 6-03 mouth ity of itamin D3 15:12: daily. [place] (VITAMIN 31 Medical D-3 ORAL) Branch MAGNESIUM 2021-0 Yes Take by Unive rs ORAL 6-03 mouth. ity of 15:12: [place] [address] Medical Branch aspirin 2021-0 Yes 81mg Take 81 mg Univ ers (ADULT LOW 6-03 by mouth ity o f DOSE 15:12: daily. [place] ASPIRIN) 81 31 Medical mg EC Branch tablet ascorbic 0 Yes Take by Univer s acid 6-03 mouth ity of (VITAMIN C 15:12: daily. [place] ORAL) 31 Medical Branch ZINC ORAL 0 Yes Take by Unive rs 6-03 mouth. ity of 15:12: [place] [address] Medical Branch calcium 0 Yes Take by [facility] carbonate/v 6-03 mouth ity of itamin D3 15:12: daily. [place] (VITAMIN 31 Medical D-3 ORAL) Branch MAGNESIUM 0 Yes Take by Unive rs ORAL 6-03 mouth. ity of 15:12: [place] [address] Medical Branch aspirin 0 Yes 81mg Take 81 mg Univ ers (ADULT LOW 6-03 by mouth ity o f DOSE 15:12: daily. [place] ASPIRIN) 81 31 Medical mg EC Branch tablet ascorbic 0 Yes Take by Univer s acid 6-03 mouth ity of (VITAMIN C 15:12: daily. [place] ORAL) 31 Medical Branch ZINC ORAL 0 Yes Take by Unive rs 6-03 mouth. ity of 15:12: [place] [address] Medical Branch calcium 0 Yes Take by [facility] carbonate/v 6-03 mouth ity of itamin D3 15:12: daily. [place] (VITAMIN 31 Medical D-3 ORAL) Branch MAGNESIUM 0 Yes Take by Unive rs ORAL 6-03 mouth. ity of 15:12: [place] [address] Medical Branch aspirin 0 Yes 81mg Take 81 mg Univ ers (ADULT LOW 6-03 by mouth ity o f DOSE 15:12: daily. [place] ASPIRIN) 81 31 Medical mg EC Branch tablet ascorbic 0 Yes Take by Univer s acid 6-03 mouth ity of (VITAMIN C 15:12: daily. [place] ORAL) Medical Branch ZINC ORAL 2021-0 Yes Take by Unive rs 6-03 mouth. ity of 15:12: [place] [address] Medical Branch calcium 0 Yes Take by [facility] carbonate/v 6-03 mouth ity of itamin D3 15:12: daily. [place] (VITAMIN 31 Medical D-3 ORAL) Branch MAGNESIUM 0 Yes Take by Unive rs ORAL 6-03 mouth. ity of 15:12: [place] [address] Medical Branch metoprolol 2021-0 Yes [id number] 12.5mg Take 0.5 [facility] tartrate 25 2-10 tablets by it y of mg tablet 00:00: mouth 2 (two) Medical times Branch daily. atorvastati 2021-0 Yes [id number] 80mg Take 1 Univers n 80 mg 2-10 tablet by ity of tablet 00:00: mouth at [place] bedtime. Medical Branch metoprolol 2021-0 Yes [id number] 12.5mg Take 0.5 [facility] tartrate 25 2-10 tablets by it y of mg tablet 00:00: mouth 2 (two) Medical times Branch daily. atorvastati 2021-0 Yes [id number] 80mg Take 1 [facility] n 80 mg 2-10 tablet by ity of tablet 00:00: mouth at [place] bedtime. Medical Branch metoprolol 0 Yes [id number] 12.5mg Take 0.5 [facility] tartrate 25 2-10 tablets by it y of mg tablet 00:00: mouth 2 [place] (two) Medical times Branch daily. atorvastati 0 Yes [id number] 80mg Take 1 Univers n 80 mg 2-10 tablet by ity of tablet 00:00: mouth at [place] [address] bedtime. Medical Branch metoprolol 0 Yes [id number] 12.5mg Take 0.5 [facility] tartrate 25 2-10 tablets by it y of mg tablet 00:00: mouth 2 [place] (two) Medical times Branch daily. atorvastati 2021-0 Yes [id number] 80mg Take 1 Univers n 80 mg 2-10 tablet by ity of tablet 00:00: mouth at [place] [address] bedtime. Medical Branch metoprolol 0 Yes [id number] 12.5mg Take 0.5 [facility] tartrate 25 2-10 tablets by it y of mg tablet 00:00: mouth 2 [place] (two) Medical times Branch daily. atorvastati 2021-0 Yes [id number] 80mg Take 1 [facility] n 80 mg 2-10 tablet by ity of tablet 00:00: mouth at [place] [address] bedtime. Medical Branch metoprolol 0 Yes [id number] 12.5mg Take 0.5 [facility] tartrate 25 2-10 tablets by it y of mg tablet 00:00: mouth 2 (two) Medical times Branch daily. atorvastati 2021-0 Yes [id number] 80mg Take 1 [facility] n 80 mg 2-10 tablet by ity of tablet 00:00: mouth at [place] bedtime. Medical Branch metoprolol 2021-0 Yes [id number] 12.5mg Take 0.5 [facility] tartrate 25 2-10 tablets by it y of mg tablet 00:00: mouth 2 (two) Medical times Branch daily. atorvastati 2021-0 Yes [id number] 80mg Take 1 [facility] n 80 mg 2-10 tablet by ity of tablet 00:00: mouth at [place] bedtime. Medical Branch metoprolol 0 Yes [id number] 12.5mg Take 0.5 [facility] tartrate 25 2-10 tablets by it y of mg tablet 00:00: mouth 2 (two) Medical times Branch daily. atorvastati 2021-0 Yes [id number] 80mg Take 1 [facility] n 80 mg 2-10 tablet by ity of tablet 00:00: mouth at [place] bedtime. Medical Branch metoprolol 0 Yes [id number] 12.5mg Take 0.5 [facility] tartrate 25 2-10 tablets by it y of mg tablet 00:00: mouth 2 (two) Medical times Branch daily. atorvastati 0 Yes [id number] 80mg Take 1 [facility] n 80 mg 2-10 tablet by ity of tablet 00:00: mouth at [place] bedtime. Medical Branch metoprolol 0 Yes [id number] 12.5mg Take 0.5 [facility] tartrate 25 2-10 tablets by it y of mg tablet 00:00: mouth 2 (two) Medical times Branch daily. atorvastati 2021-0 Yes [id number] 80mg Take 1 [facility] n 80 mg 2-10 tablet by ity of tablet 00:00: mouth at [place] bedtime. Medical Branch metoprolol 0 Yes [id number] 12.5mg Take 0.5 [facility] tartrate 25 2-10 tablets by it y of mg tablet 00:00: mouth 2 (two) Medical times Branch daily. atorvastati 2021-0 Yes [id number] 80mg Take 1 [facility] n 80 mg 2-10 tablet by ity of tablet 00:00: mouth at [place] [address] bedtime. Medical Branch metoprolol 2021-0 Yes [id number] 12.5mg Take 0.5 [facility] tartrate 25 2-10 tablets by it y of mg tablet 00:00: mouth 2 [place] (two) Medical times Branch daily. atorvastati 2021-0 Yes [id number] 80mg Take 1 [facility] n 80 mg 2-10 tablet by ity of tablet 00:00: mouth at [place] [address] bedtime. Medical Branch metoprolol 0 Yes [id number] 12.5mg Take 0.5 [facility] tartrate 25 2-10 tablets by it y of mg tablet 00:00: mouth 2 [place] (two) Medical times Branch daily. atorvastati 0 Yes [id number] 80mg Take 1 [facility] n 80 mg 2-10 tablet by ity of tablet 00:00: mouth at [place] [address] bedtime. Medical Branch metoprolol 0 Yes [id number] 12.5mg Take 0.5 [facility] tartrate 25 2-10 tablets by it y of mg tablet 00:00: mouth 2 [place] (two) Medical times Branch daily. atorvastati 0 Yes [id number] 80mg Take 1 [facility] n 80 mg 2-10 tablet by ity of tablet 00:00: mouth at [place] [address] bedtime. Medical Branch metoprolol 0 Yes [id number] 12.5mg Take 0.5 [facility] tartrate 25 2-10 tablets by it y of mg tablet 00:00: mouth 2 [place] (two) Medical times Branch daily. atorvastati 2021-0 Yes [id number] 80mg Take 1 [facility] n 80 mg 2-10 tablet by ity of tablet 00:00: mouth at [place] [address] bedtime. Medical Branch metoprolol 0 Yes [id number] 12.5mg Take 0.5 [facility] tartrate 25 2-10 tablets by it y of mg tablet 00:00: mouth 2 [place] (two) Medical times Branch daily. atorvastati 2021-0 Yes [id number] 80mg Take 1 [facility] n 80 mg 2-10 tablet by ity of tablet 00:00: mouth at [place] [address] bedtime. Medical Branch metoprolol 0 Yes [id number] 12.5mg Take 0.5 [facility] tartrate 25 2-10 tablets by it y of mg tablet 00:00: mouth 2 [place] 00 (two) Medical times Branch daily. atorvastati Yes [id number] 80mg Take 1 [facility] n 80 mg 2-10 tablet by ity of tablet 00:00: mouth at [place] [address] bedtime. Medical Branch atorvastati Yes [id number] 80mg Take 1 [facility] n 80 mg 2-10 tablet by ity of tablet 00:00: mouth at [place] [address] bedtime. Medical Branch atorvastati Yes [id number] 80mg Take 1 [facility] n 80 mg 2-10 tablet by ity of tablet 00:00: mouth at [place] [address] bedtime. Medical Branch atorvastati Yes [id number] 80mg Take 1 [facility] n 80 mg 2-10 tablet by ity of tablet 00:00: mouth at [place] [address] bedtime. Medical Branch atorvastati Yes [id number] 80mg Take 1 [facility] n 80 mg 2-10 tablet by ity of tablet 00:00: mouth at [place] [address] bedtime. Medical Branch atorvastati Yes [id number] 80mg Take 1 [facility] n 80 mg 2-10 tablet by ity of tablet 00:00: mouth at [place] [address] bedtime. Medical Branch atorvastati Yes [id number] 80mg Take 1 [facility] n 80 mg 2-10 tablet by ity of tablet 00:00: mouth at [place] [address] bedtime. Medical Branch atorvastati 2022- No [id number] 80mg Take 1 [facility] n 80 mg 2-10 04-25 tablet by ity of tablet 00:00: 00:00 mouth at [place] 00 :00 bedtime. Medical Branch metoprolol 2022- No [id number] 12.5mg Take 0.5 [facility] tartrate 25 2-10 02-17 tablets by i ty of mg tablet 00:00: 00:[place] 2 [place] ([place] [facility] times Branch daily. tadalafiL Yes 20mg Take 20 mg Un lino 20 mg 4-27 by mouth ity of tablet 12:12: as needed [place] for [facility] Erectile Branch dysfunctio n. Immunizations Ordered Filled Immunization Date Status Comments [facility] e Immunization Name Name Pneumococcal 2021-07-14 Completed University o f Polysaccharide, 00:00:00 [place] [facility] ical PPSV23 (PNEUMOVAX) Branch Pneumococcal 2021-07-14 Completed University o f Polysaccharide, 00:00:00 [place] [facility] ical PPSV23 (PNEUMOVAX) Branch Pneumococcal 2021-07-14 Completed University o f Polysaccharide, 00:00:00 [place] [facility] ical PPSV23 (PNEUMOVAX) Branch Pneumococcal 2021-07-14 Completed University o f Polysaccharide, 00:00:00 [place] [facility] ical PPSV23 (PNEUMOVAX) Branch Pneumococcal 2021-07-14 Completed University o f Polysaccharide, 00:00:00 [place] [facility] ical PPSV23 (PNEUMOVAX) Branch Pneumococcal 2021-07-14 Completed University o f Polysaccharide, 00:00:00 [place] [facility] PPSV23 (PNEUMOVAX) Branch Pneumococcal 2021-07-14 Completed University o f Polysaccharide, 00:00:00 [place] [facility] ical PPSV23 (PNEUMOVAX) Branch Pneumococcal 2021-07-14 Completed University o f Polysaccharide, 00:00:00 [place] [facility] ical PPSV23 (PNEUMOVAX) Branch Pneumococcal 2021-07-14 Completed University o f Polysaccharide, 00:00:00 [place] [facility] ical PPSV23 (PNEUMOVAX) Branch Pneumococcal 2021-07-14 Completed University o f Polysaccharide, 00:00:00 [place] [facility] ical PPSV23 (PNEUMOVAX) Branch Pneumococcal 2021-07-14 Completed University o f Polysaccharide, 00:00:00 [place] [facility] ical PPSV23 (PNEUMOVAX) Branch Pneumococcal 2021-07-14 Completed University o f Polysaccharide, 00:00:00 [place] [facility] ical PPSV23 (PNEUMOVAX) Branch Pneumococcal 2021-07-14 Completed University o f Polysaccharide, 00:00:00 [place] [facility] ical PPSV23 (PNEUMOVAX) Branch Pneumococcal 2021-07-14 Completed University o f Polysaccharide, 00:00:00 [place] [facility] ical PPSV23 (PNEUMOVAX) Branch Pneumococcal 2021-07-14 Completed University o f Polysaccharide, 00:00:00 [place] [facility] ical PPSV23 (PNEUMOVAX) Branch Pneumococcal 2021-07-14 Completed University o f Polysaccharide, 00:00:00 [place] [facility] ical PPSV23 (PNEUMOVAX) Branch Pneumococcal 2021-07-14 Completed University o f Polysaccharide, 00:00:00 [place] [facility] ical PPSV23 (PNEUMOVAX) Branch Pneumococcal 2021-07-14 Completed University o f Polysaccharide, 00:00:00 [place] [facility] ical PPSV23 (PNEUMOVAX) Branch Pneumococcal 2021-07-14 Completed University o f Polysaccharide, 00:00:00 [place] [facility] ical PPSV23 (PNEUMOVAX) Branch Pneumococcal 2021-07-14 Completed University o f Polysaccharide, 00:00:00 [place] [facility] ical PPSV23 (PNEUMOVAX) Branch Pneumococcal 2021-07-14 Completed University o f Polysaccharide, 00:00:00 [place] [facility] ical PPSV23 (PNEUMOVAX) Branch Pneumococcal 2021-07-14 Completed University o f Polysaccharide, 00:00:00 [place] [facility] ical PPSV23 (PNEUMOVAX) Branch Pneumococcal 2021-07-14 Completed University o f Polysaccharide, 00:00:00 [place] [facility] ical PPSV23 (PNEUMOVAX) Branch Pneumococcal 2021-07-14 Completed University o f Polysaccharide, 00:00:00 [place] [facility] ical PPSV23 (PNEUMOVAX) Branch Pneumococcal 2021-07-14 Completed University o f Polysaccharide, 00:00:00 [place] [facility] ical PPSV23 (PNEUMOVAX) Branch Pneumococcal 2021-07-14 Completed University o f Polysaccharide, 00:00:00 [place] [facility] ical PPSV23 (PNEUMOVAX) Branch Pneumococcal 2021-07-14 Completed University o f Polysaccharide, 00:00:00 [place] [facility] ical PPSV23 (PNEUMOVAX) Branch Pneumococcal 2021-07-14 Completed University o f Polysaccharide, 00:00:00 [place] [facility] ical PPSV23 (PNEUMOVAX) Branch TDAP 2021-02-22 Completed [facility] of 00:00:00 [facility] TDAP 2021-02-22 Completed University of 00[facility]00:00 [facility] TDAP 2021-02-22 Completed University of 00:00:00 [facility] TDAP 2021-02-22 Completed University of 00:00:00 [facility] TDAP 2021-02-22 Completed University of 00:00:00 [facility] TDAP 2021-02-22 Completed University of 00:00:00 [facility] TDAP 2021-02-22 Completed University of 00[facility]00:00 [facility] TDAP 2021-02-22 Completed University of 00[facility]00:00 [facility] TDAP 2021-02-22 Completed University of 00:00:00 [facility] TDAP 2021-02-22 Completed University of 00:00:00 [facility] TDAP 2021-02-22 Completed University of 00:00:00 [facility] TDAP 2021-02-22 Completed University of 00:00:00 [facility] TDAP 2021-02-22 Completed University of 00:00:00 [facility] TDAP 2021-02-22 Completed [facility] of 00:00:00 [facility] TDAP 2021-02-22 Completed [facility] 00:00:00 [facility] TDAP 2021-02-22 Completed University of 00:00:00 [facility] TDAP 2021-02-22 Completed University of 00:00:00 [facility] TDAP 2021-02-22 Completed University of 00:00:00 [facility] TDAP 2021-02-22 Completed University of 00:00:00 [facility] TDAP 2021-02-22 Completed [facility] 00:00:00 [facility] TDAP 2021-02-22 Completed University of 00:00:00 [facility] TDAP 2021-02-22 Completed University of 00:00:00 [facility] TDAP 2021-02-22 Completed University of 00:00:00 [facility] TDAP 2021-02-22 Completed University of 00:00:00 [facility] TDAP 2021-02-22 Completed University of 00:00:00 [facility] TDAP 2021-02-22 Completed University of 00:00:00 [facility] TDAP 2021-02-22 Completed University of 00:00:00 [facility] TDAP 2021-02-22 Completed University of 00:00:00 [facility] SARS-COV-2 COVID-19 2021-01-24 Completed Unive rsity of PFIZER VACCINE 00:00:00 [facility] SARS-COV-2 COVID-19 2021-01-24 Completed Unive rsity of PFIZER VACCINE 00:00:00 [facility] SARS-COV-2 COVID-19 2021-01-24 Completed Unive rsity of PFIZER VACCINE 00:00:00 [facility] SARS-COV-2 COVID-19 2021-01-24 Completed Unive rsity of PFIZER VACCINE 00:00:00 [facility] SARS-COV-2 COVID-19 2021-01-24 Completed Unive rsity of PFIZER VACCINE 00:00:00 [facility] SARS-COV-2 COVID-19 2021-01-24 Completed Unive rsity of PFIZER VACCINE 00:00:00 [facility] SARS-COV-2 COVID-19 2021-01-24 Completed Unive rsity of PFIZER VACCINE 00:00:00 [facility] SARS-COV-2 COVID-19 2021-01-24 Completed Unive rsity of PFIZER VACCINE 00:00:00 [facility] SARS-COV-2 COVID-19 2021-01-24 Completed Unive rsity of PFIZER VACCINE 00:00:00 [facility] SARS-COV-2 COVID-19 2021-01-24 Completed Unive rsity of PFIZER VACCINE 00:00:00 [facility] SARS-COV-2 COVID-19 2021-01-24 Completed Unive rsity of PFIZER VACCINE 00:00:00 [facility] SARS-COV-2 COVID-19 2021-01-24 Completed Unive rsity of PFIZER VACCINE 00:00:00 [facility] SARS-COV-2 COVID-19 2021-01-24 Completed Unive rsity of PFIZER VACCINE 00:00:00 [facility] SARS-COV-2 COVID-19 2021-01-24 Completed Unive rsity of PFIZER VACCINE 00:00:00 [facility] SARS-COV-2 COVID-19 2021-01-24 Completed Unive rsity of PFIZER VACCINE 00:00:00 [facility] SARS-COV-2 COVID-19 2021-01-24 Completed Unive rsity of PFIZER VACCINE 00:00:00 [facility] SARS-COV-2 COVID-19 2021-01-24 Completed Unive rsity of PFIZER VACCINE 00:00:00 [facility] SARS-COV-2 COVID-19 2021-01-24 Completed Unive rsity of PFIZER VACCINE 00:00:00 [facility] SARS-COV-2 COVID-19 2021-01-24 Completed Unive rsity of PFIZER VACCINE 00:00:00 [facility] SARS-COV-2 COVID-19 2021-01-24 Completed Unive rsity of PFIZER VACCINE 00:00:00 [facility] SARS-COV-2 COVID-19 2021-01-24 Completed Unive rsity of PFIZER VACCINE 00:00:00 [facility] SARS-COV-2 COVID-19 2021-01-24 Completed Unive rsity of PFIZER VACCINE 00:00:00 [facility] SARS-COV-2 COVID-19 2021-01-24 Completed Unive rsity of PFIZER VACCINE 00:00:00 [facility] SARS-COV-2 COVID-19 2021-01-24 Completed Unive rsity of PFIZER VACCINE 00:00:00 [facility] SARS-COV-2 COVID-19 2021-01-24 Completed Unive rsity of PFIZER VACCINE 00:00:00 [facility] SARS-COV-2 COVID-19 2021-01-24 Completed Unive rsity of PFIZER VACCINE 00:00:00 [facility] SARS-COV-2 COVID-19 2021-01-24 Completed Unive rsity of PFIZER VACCINE 00:00:00 [facility] SARS-COV-2 COVID-19 2021-01-24 Completed Unive rsity of PFIZER VACCINE 00:00:00 [facility] SARS-COV-2 COVID-19 2020-07-24 Completed Unive rsity of PFIZER VACCINE 00:00:00 [facility] SARS-COV-2 COVID-19 2020-07-24 Completed Unive rsity of PFIZER VACCINE 00:00:00 [facility] SARS-COV-2 COVID-19 2020-07-24 Completed Unive rsity of PFIZER VACCINE 00:00:00 [facility] SARS-COV-2 COVID-19 2020-07-24 Completed Unive rsity of PFIZER VACCINE 00:00:00 [facility] SARS-COV-2 COVID-19 2020-07-24 Completed Unive rsity of PFIZER VACCINE 00:00:00 [facility] SARS-COV-2 COVID-19 2020-07-24 Completed Unive rsity of PFIZER VACCINE 00:00:00 [facility] SARS-COV-2 COVID-19 2020-07-24 Completed Unive rsity of PFIZER VACCINE 00:00:00 [facility] SARS-COV-2 COVID-19 2020-07-24 Completed Unive rsity of PFIZER VACCINE 00:00:00 [facility] SARS-COV-2 COVID-19 2020-07-24 Completed Unive rsity of PFIZER VACCINE 00:00:00 [facility] SARS-COV-2 COVID-19 2020-07-24 Completed Unive rsity of PFIZER VACCINE 00:00:00 [facility] SARS-COV-2 COVID-19 2020-07-24 Completed Unive rsity of PFIZER VACCINE 00:00:00 [facility] SARS-COV-2 COVID-19 2020-07-24 Completed Unive rsity of PFIZER VACCINE 00:00:00 [facility] SARS-COV-2 COVID-19 2020-07-24 Completed Unive rsity of PFIZER VACCINE 00:00:00 [facility] SARS-COV-2 COVID-19 2020-07-24 Completed Unive rsity of PFIZER VACCINE 00:00:00 [facility] SARS-COV-2 COVID-19 2020-07-24 Completed Unive rsity of PFIZER VACCINE 00:00:00 [facility] SARS-COV-2 COVID-19 2020-07-24 Completed Unive rsity of PFIZER VACCINE 00:00:00 [facility] SARS-COV-2 COVID-19 2020-07-24 Completed Unive rsity of PFIZER VACCINE 00:00:00 [facility] SARS-COV-2 COVID-19 2020-07-24 Completed Unive rsity of PFIZER VACCINE 00:00:00 [facility] SARS-COV-2 COVID-19 2020-07-24 Completed Unive rsity of PFIZER VACCINE 00:00:00 [facility] SARS-COV-2 COVID-19 2020-07-24 Completed Unive rsity of PFIZER VACCINE 00:00:00 [facility] SARS-COV-2 COVID-19 2020-07-24 Completed Unive rsity of PFIZER VACCINE 00:00:00 [facility] SARS-COV-2 COVID-19 2020-07-24 Completed Unive rsity of PFIZER VACCINE 00:00:00 [facility] SARS-COV-2 COVID-19 2020-07-24 Completed Unive rsity of PFIZER VACCINE 00:00:00 [facility] SARS-COV-2 COVID-19 2020-07-24 Completed Unive rsity of PFIZER VACCINE 00:00:00 [facility] SARS-COV-2 COVID-19 2020-07-24 Completed Unive rsity of PFIZER VACCINE 00:00:00 [facility] SARS-COV-2 COVID-19 2020-07-24 Completed Unive rsity of PFIZER VACCINE 00:00:00 [facility] SARS-COV-2 COVID-19 2020-07-24 Completed Unive rsity of PFIZER VACCINE 00:00:00 [facility] SARS-COV-2 COVID-19 2020-07-24 Completed Unive rsity of PFIZER VACCINE 00:00:00 [facility] SARS-COV-2 COVID-19 2020-07-03 Completed Unive rsity of PFIZER VACCINE 00:00:00 [facility] SARS-COV-2 COVID-19 2020-07-03 Completed Unive rsity of PFIZER VACCINE 00:00:00 [facility] SARS-COV-2 COVID-19 2020-07-03 Completed Unive rsity of PFIZER VACCINE 00:00:00 [facility] SARS-COV-2 COVID-19 2020-07-03 Completed Unive rsity of PFIZER VACCINE 00:00:00 [facility] SARS-COV-2 COVID-19 2020-07-03 Completed Unive rsity of PFIZER VACCINE 00:00:00 [facility] SARS-COV-2 COVID-19 2020-07-03 Completed Unive rsity of PFIZER VACCINE 00:00:00 [facility] SARS-COV-2 COVID-19 2020-07-03 Completed Unive rsity of PFIZER VACCINE 00:00:00 [facility] SARS-COV-2 COVID-19 2020-07-03 Completed Unive rsity of PFIZER VACCINE 00:00:00 [facility] SARS-COV-2 COVID-19 2020-07-03 Completed Unive rsity of PFIZER VACCINE 00:00:00 [facility] SARS-COV-2 COVID-19 2020-07-03 Completed Unive rsity of PFIZER VACCINE 00:00:00 [facility] SARS-COV-2 COVID-19 2020-07-03 Completed Unive rsity of PFIZER VACCINE 00:00:00 [facility] SARS-COV-2 COVID-19 2020-07-03 Completed Unive rsity of PFIZER VACCINE 00:00:00 [facility] SARS-COV-2 COVID-19 2020-07-03 Completed Unive rsity of PFIZER VACCINE 00:00:00 [facility] SARS-COV-2 COVID-19 2020-07-03 Completed Unive rsity of PFIZER VACCINE 00:00:00 [facility] SARS-COV-2 COVID-19 2020-07-03 Completed Unive rsity of PFIZER VACCINE 00:00:00 [facility] SARS-COV-2 COVID-19 2020-07-03 Completed Unive rsity of PFIZER VACCINE 00:00:00 [facility] SARS-COV-2 COVID-19 2020-07-03 Completed Unive rsity of PFIZER VACCINE 00:00:00 [facility] SARS-COV-2 COVID-19 2020-07-03 Completed Unive rsity of PFIZER VACCINE 00:00:00 [facility] SARS-COV-2 COVID-19 2020-07-03 Completed Unive rsity of PFIZER VACCINE 00:00:00 [facility] SARS-COV-2 COVID-19 2020-07-03 Completed Unive rsity of PFIZER VACCINE 00:00:00 [facility] SARS-COV-2 COVID-19 2020-07-03 Completed Unive rsity of PFIZER VACCINE 00:00:00 [facility] SARS-COV-2 COVID-19 2020-07-03 Completed Unive rsity of PFIZER VACCINE 00:00:00 [facility] SARS-COV-2 COVID-19 2020-07-03 Completed Unive rsity of PFIZER VACCINE 00:00:00 [facility] SARS-COV-2 COVID-19 2020-07-03 Completed Unive rsity of PFIZER VACCINE 00:00:00 [facility] SARS-COV-2 COVID-19 2020-07-03 Completed Unive rsity of PFIZER VACCINE 00:00:00 [facility] SARS-COV-2 COVID-19 2020-07-03 Completed Unive rsity of PFIZER VACCINE 00:00:00 [facility] SARS-COV-2 COVID-19 2020-07-03 Completed Unive rsity of PFIZER VACCINE 00:00:00 [facility] SARS-COV-2 COVID-19 2020-07-03 Completed Unive rsity of PFIZER VACCINE 00:00:00 [facility] Influenza High Dose 2020-01-07 Completed Unive rsity of [facility] 00:00:00 [facility] Influenza High Dose 2020-01-07 Completed Unive rsity of [facility] 00:00:00 [facility] Influenza High Dose 2020-01-07 Completed Unive rsity of [facility] 00:00:00 [facility] Influenza High Dose 2020-01-07 Completed Unive rsity of [facility] 00:00:00 [facility] Influenza High Dose 2020-01-07 Completed Unive rsity of [facility] 00:00:00 [facility] Influenza High Dose 2020-01-07 Completed Unive rsity of [facility] 00:00:00 [facility] Influenza High Dose 2020-01-07 Completed Unive rsity of [facility] 00:00:00 [facility] Influenza High Dose 2020-01-07 Completed Unive rsity of [place] 00:00:00 [facility] Influenza High Dose 2020-01-07 Completed Unive rsity of [place] 00:00:00 [facility] Influenza High Dose 2020-01-07 Completed Unive rsity of [facility] 00:00:00 [facility] Influenza High Dose 2020-01-07 Completed Unive rsity of [facility] 00:00:00 [facility] Influenza High Dose 2020-01-07 Completed Unive rsity of [place] 00:00:00 [facility] Influenza High Dose 2020-01-07 Completed Unive rsity of [place] 00:00:00 [facility] Influenza High Dose 2020-01-07 Completed Unive rsity of [place] 00:00:00 [facility] Influenza High Dose 2020-01-07 Completed Unive rsity of [facility] 00:00:00 [facility] Influenza High Dose 2020-01-07 Completed Unive rsity of [facility] 00:00:00 [facility] Influenza High Dose 2020-01-07 Completed Unive rsity of [facility] 00:00:00 [facility] Influenza High Dose 2020-01-07 Completed Unive rsity of [place] 00:00:00 [facility] Influenza High Dose 2020-01-07 Completed Unive rsity of [place] 00:00:00 [facility] Influenza High Dose 2020-01-07 Completed Unive rsity of [place] 00:00:00 [facility] Influenza High Dose 2020-01-07 Completed Unive rsity of [place] 00:00:00 [facility] Influenza High Dose 2020-01-07 Completed Unive rsity of [place] 00:00:00 [facility] Influenza High Dose 2020-01-07 Completed Unive rsity of [place] 00:00:00 [facility] Influenza High Dose 2020-01-07 Completed Unive rsity of [facility] 00:00:00 [facility] Influenza High Dose 2020-01-07 Completed Unive rsity of [place] 00:00:00 [facility] Influenza High Dose 2020-01-07 Completed Unive rsity of [facility] 00:00:00 [facility] Influenza High Dose 2020-01-07 Completed Unive rsity of [facility] 00:00:00 [facility] Influenza High Dose 2020-01-07 Completed Unive rsity of [facility] 00:00:00 [facility] Vital Signs Vital Name Observation Time Observation Value Comments Source Systolic blood 2022-07-16 19:10:00 127 mm[Hg] Univer sity of pressure [facility] Diastolic blood 2022-07-16 19:10:00 76 mm[Hg] Unive rsity of pressure [facility] Heart rate 2022-07-16 19:10:00 54 /min [facility] Body temperature 2022-07-16 19:10:00 36.[address] [facility] Respiratory rate 2022-07-16 19:10:00 18 /min Univ ersity of [facility] Body height 2022-07-16 19:10:00 177.8 cm Universi ty [facility] Body weight 2022-07-16 19:10:00 84.777 kg [facility] BMI 2022-07-16 19:10:00 26.82 kg/m2 [facility] Oxygen saturation in 2022-07-16 19:10:00 97 /min University Arterial blood by [facility] Pulse oximetry Branch Body height 2022-05-08 15:23:00 177.8 cm [facility] Systolic blood 2022-03-26 16:46:00 134 mm[Hg] Univer sity of pressure [facility] Diastolic blood 2022-03-26 16:46:00 78 mm[Hg] Unive rsity of pressure [facility] Heart rate 2022-03-26 16:46:00 70 /min Universi ty [facility] Body temperature 2022-03-26 16:44:00 36.78 Jeannette Univ ersity of [facility] Respiratory rate 2022-03-26 16:44:00 18 /min Univ ersity of [facility] Body height 2022-03-26 16:44:00 177.8 cm Universi ty [facility] Body weight 2022-03-26 16:44:00 91.536 kg Universi [facility] BMI 2022-03-26 16:44:00 28.96 kg/m2 Universi [facility] Oxygen saturation in 2022-03-26 16:44:00 96 /min University of Arterial blood by [place] [facility] [facility] Pulse [facility]xim[facility] Systolic blood 2021-12-18 20:34:00 121 mm[Hg] Univer sity of pressure [facility] Diastolic blood 2021-12-18 20:34:00 68 mm[Hg] Unive rsity of pressure [facility] Heart rate 2021-12-18 20:34:00 74 /min Universi ty [facility] Respiratory rate 2021-12-18 20:34:00 18 /min Univ ersity of [facility] Body height 2021-12-18 20:34:00 177.8 cm [facility]i [facility] Body weight 2021-12-18 20:34:00 91.445 kg [facility] BMI 2021-12-18 20:34:00 28.93 kg/m2 Univers[facility] Oxygen saturation in 2021-12-18 20:34:00 98 /min University of Arterial blood by [facility]a Pulse oximetry Branch Systolic blood 2021-08-25 20:11:00 107 mm[Hg] Univer sity of pressure [facility] Diastolic blood 2021-08-25 20:11:00 55 mm[Hg] Unive rsity of pressure [facility] Heart rate 2021-08-25 20:11:00 60 /min [facility] Respiratory rate 2021-08-25 20:11:00 17 /min [facility] Body height 2021-08-25 20:11:00 177.8 cm [facility] Body weight 2021-08-25 20:11:00 92.279 kg [facility] BMI 2021-08-25 20:11:00 29.19 kg/m2 [facility] Oxygen saturation in 2021-08-25 20:11:00 95 /min [facility] Arterial blood by [facility] Pulse oximetry [place] Procedures Procedure Date / Time Performed Performing Clinician Kingsley sprague [facility] PATIENT FINANCIAL 2022-07-16 18:49:11 Doctor Unassigned, No [facility] ASSIGNMENT OF BENEFITS 2022-05-08 15:14:18 Doctor Unassigned, No [facility] POCT URINALYSIS AUTO 2022-03-26 17:57:00 Chiqui [facility] SCANNED LAB RESULTS 2021-10-27 05:01:00 [facility] Start End Encounter Admission Attending Care Care Encounter Source Date/Time Date/Time Type Type Clinicians Facility Department ID 2021-01-22 Outpatient R DOC SALAZAR [facility] [id number] Univers 13:44:40 [facility] 2021-01-22 Outpatient R KYLE [facility] [id number] Univers 08:28:52 PARVIZ [facility] 2023-07-17 2023-07-17 Outpatient R SAMUEL [facility] [id number] Univers 13:00:00 13:00:00 JIMI smith o f [facility] 2022-09-30 2022-09-30 [facility] 1.2.840.114 [id number] Univers 00:00:00 00:00:00 Soledad A [facility] [id number] i ty of [place] [id number] Wei as JOSE L?BLEA [id number] Ct dical [address] MEDICAL OFFICE BUILDING 2022-08-29 2022-08-29 Letter [facility] [id number] Univers 00:00:00 00:00:00 (Out) Jimi TAYLOR [id number] ity [facility] [id number] [id number] [place] [id number] [facility] 2022-08-21 2022-08-21 [facility] 1.2.840.114 [id number] Univers 00:00:00 00:00:00 Soledad A [facility] [id number] i ty of [place] [id number] Wei as JOSE L?BLEA [id number] [facility] 044 [facility] OFFICE [facility] 2022-08-20 2022-08-20 Patient [facility] 1.2.840.114 [id number] Univers 00:00:00 00:00:00 Secure Msg Jimi [place] [id number] [id number] [id number] [address] 2022-08-17 2022-08-17 Outpatient R [facility] [id number] Univers 12:38:47 23:59:00 PAUCLAYTON luis o [facility] 2022-07-16 2022-07-16 Outpatient R ROBLEY [facility] [id number] Univers 14:20:00 14:32:05 JIMI smith o [facility] 2022-07-16 2022-07-16 Office [facility] 1..840.114 [id number] Univers 14:20:00 14:32:05 Visit [facility] [id number] [facility] [id number] [id number] [address] 2022-07-16 2022-07-16 Orders Doctor ANGEL 1..840.114 [id number] Univers 00:00:00 00:00:00 Only Unassigned, DANA [id number] ity of [place] [facility] [id number] Wei as [id number] [facility] 009 [place] 2022-07-16 2022-07-16 Refill [facility] 1.2.840.114 [id number] Univers 00:00:00 00:00:00 Chiqui TAYLOR [id number] ity [facility] [id number] [id number] Ct dical NAL 188 [facility] 2022-07-16 2022-07-16 Refill [facility] 1.2.840.114 [id number] Univers 00:00:00 00:00:00 Wondiful A HEALTH [id number] ity of [place] [id number] Wei as JOSE L?BLEA [id number] Ct dical KNEY [address]44 [place] MEDICAL OFFICE [facility] 2022-06-08 2022-06-08 Jo Ann [facility] [id number] Univers 00:00:00 00:00:00 Jimi TAYLOR [id number] [id number] [id number] Ct dical NAL 059 [facility] 2022-05-08 2022-05-08 Outpatient R MOON [facility] [id number] Univers 09:30:00 10:14:[address] [facility] 2022-05-08 2022-05-08 Office RENETTA Johnson 1.2.840.114 [id number] Univers 09:30:00 10:14:46 Visit Ezekiel P Y HEALTH [id number] ity [id number] [id number] [facility] 028 [place] 2022-05-08 2022-05-08 Orders Doctor STANLEY 1.2.840.114 [id number] Univers 00:00:00 00:00:00 Only Unassigned, DANA [id number] ity of [place] [facility] [id number] Wei as [id number] [facility] 009 [place] 2022-05-02 2022-05-02 Refill [facility] 1.2.840.114 [id number] Univers 00:00:00 00:00:00 Soledad Zepeda [facility] [id number] i ty michael [place] [id number] Wei as JOSE L?BLEA [id number] Ct anitakrupa LAGUNASEY 044 [facility] OFFICE [facility] 2022-04-10 2022-04-10 Outpatient R KYLE [facility] [id number] Univers 10:00:00 10:00:00 PARVIZ ity [facility] 2022-03-26 2022-03-26 Director [employer] 2, Adc Lab [facility] 1.2.840.114 [id number] Univers 11:45:00 12:00:00 Visit Chiqui [place] 350.1.13. 10 ity [facility] [id number] [id number] Ct dical NAL 353 [facility] 2022-03-26 2022-03-26 [facility] [id number] Univers 11:00:00 11:46:[address] ity o f [facility] 2022-03-26 2022-03-26 Office [place], [facility] 1.2.840.114 [id number] Univers 11:00:00 11:46:26 Visit Chiqui TAYLOR 350.1.13.10 ity [facility] [place] [phone] Ct dical NAL 204 [facility] 2022-03-21 2022-03-21 Out[facility] [id number] Univers 10:30:00 10:30:00 CHIQUI beverlyy o f [facility] 2022-01-17 2022-01-17 Telephone [place], [facility] 1.2.840.114 [id number] Univers 00:00:00 00:00:00 Chiquimickie TAYLOR 350.1.13.10 ity of [facility] [place]2.[place] [phone] Ct dical NAL 204 [facility] 2022-01-03 2022-01-03 Refill [facility] 1.2.840.114 [id number] Univers 00:00:00 00:00:00 Chiqui TAYLOR 350.1.13.10 ity of [facility] 4.2.7.2.[place] PROF[place] [phone] Ct dical NAL 188 [facility] 2021-12-22 2021-12-22 Case [facility] 1.2.840.114 [id number] Univers 00:00:00 00:00:00 Management Cihqui TAYLOR 350.1.13.10 ity of [facility] 4.2.7.2.[place] PROF[place] [phone] Ct dical NAL 204 [facility] 2021-12-18 2021-12-18 Director Life Sales 2, Adc Lab [facility] 1.2.840.114 [id number] Univers 16:15:00 16:23:11 Visit KearneyChiqui 350.1.13. 10 ity of [facility] 4.2.7.2.[place] [phone] Ct dical [facility] 353 [facility] 2021-12-18 2021-12-18 Outpatient [facility] [id number] Univers 15:30:00 16:11:53 CHIQUI beverlyaba o f [facility] 2021-12-18 2021-12-18 Office [place], [facility] 1.2.840.114 [id number] Univers 15:30:00 16:11:53 Visit Chiquimickie TAYLOR 350.1.13.10 ity of [facility] 4.2.7.2.[place] [phone] Ct dical NAL 204 [facility] 2021-11-29 2021-11-29 Abstract D[facility]IPR[facility] 1.2.840.114 [id number] Univers 00:00:00 00:00:00 [facility] 350.1.13.10 ity of [facility] 4.2.7.2.686 Wei as JOSE L?BLEA [phone] Ct dical KNEY 044 [facility] OFFICE BUILDING 2021-10-27 2021-10-27 Orders Doctor ANGEL 1.2.840.114 [id number] Univers 00:00:00 00:00:00 Only Unassigned, DANA 350.1.13.10 ity of [place] [facility] 4.2.7.2.686 Wei as [phone] [address] 2021-08-25 2021-08-25 Outpatient R [facility] [id number] Univers 15:20:00 15:34:30 JIMI ity o f [facility] 2021-08-25 2021-08-25 Office [facility] 1.2.840.114 [id number] Univers 15:20:00 15:34:30 Visit Jimi TAYLOR 350.1.13.10 ity of [place].7.2.[place] [phone] Ct anitams MADAI 059 [facility] 2021-08-25 2021-08-25 Outpatient R [facility] [id number] Univers 15:20:00 15:34:30 JIMI beverlyaba o [facility] 2021-08-25 2021-08-25 Refill Kyle[facility] 1.2.840.114 [id number] Univers 00:00:00 00:00:00 Parviz TAYLOR 350.1.13.10 i ty of [place].2.7.2.686 [place] PROF[place] [phone] Ct dicms NAL 204 [facility] 2021-07-14 2021-07-14 Outpatient [facility] [id number] Univers 13:00:00 14:51:[address] [facility] 2021-07-14 2021-07-14 Office K[facility] 1.2.840.114 [id number] Univers 13:00:00 14:51:40 Visit Soledad [facility] 350.1.13.10 i ty of [place] 4.2.7.2.686 Wei as JOSE L?BLEA [phone] Ct lety CRYSTAL 044 [facility] OFFICE BUILDING 2021-07-11 2021-07-11 Telephone JessicaSH[facility] 1.2.840.114 [id number] Univers 00:00:00 00:00:00 Hilario TAYLOR 350.1.13.10 i ty of [place] 4.2.7.2.686 [place] [phone] [address] 2021-07-07 2021-07-07 Refill Timi [facility] 1.2.840.114 [id number] Univers 00:00:00 00:00:00 Wondiful A HEALTH 350.1.13.10 ity of [place] 4.2.7.2.686 Ewi as JOSE L?BLEA [phone] [address] OFFICE [facility] 2021-05-04 2021-05-04 Outpatient R TIMI [facility] [id number] Univers 15:00:00 15:51:[address] ity o f [facility] 2021-05-04 2021-05-04 Office [facility] 1.2.840.114 [id number] Univers 15:00:00 15:51:43 Visit Wondiful A HEALTH 350.1.13.10 ity of [place] 4.2.7.2.686 Wei as JOSE L?BLEA [phone] [address] OFFICE [facility] 2021-05-04 2021-05-04 Orders Doctor STANLEY 1.2.840.114 [id number] Univers 00:00:00 00:00:00 Only Unassigned, DANA 350.1.13.10 ity of [place] [facility] 4.2.7.2.686 Wei as [phone] [address] 2021-01-25 2021-01-25 Outpatient R BURT [facility] [id number] Univers 09:30:00 09:30:[address] [facility] 2020-12-13 2020-12-13 Office [facility] 1.2.840.114 [id number] Univers 16:15:25 17:14:07 Visit Wondiful A Health 350.1.13.10 ity of [place] 4.2.7.2.686 Wei as Jose L?Blea [phone] [address] Office [facility] 2020-12-13 2020-12-13 Outpatient R TIMI [facility] [id number] Univers 16:15:00 16:15:00 [address] ity o f [facility] 2020-10-25 2020-10-25 Director Life Sales 2, Adc Lab [facility] 1.2.840.114 [id number] Univers 09:32:43 09:47:43 Visit Meg [place] 350.1.13.10 ity of [place].2.7.2.686 [place] Profess[place] [phone] Ct dical nal 353 [facility] 2020-10-25 2020-10-25 Office BurtSHIPR[facility] 1.2.840.114 [id number] Univers 08:55:51 09:29:43 Visit Meg Zepeda [place] 350.1.13.10 ity of [place] 4.2.7.2.686 [place] Professio [phone] Ct dical nal 204 [facility] 2020-10-25 2020-10-25 Outpatient R BURT [facility] [id number] Univers 09:00:00 09:00:00 MEG smith [facility] 2020-10-18 2020-10-18 Orders Doctor STANLEY 1.2.840.114 [id number] Univers 00:00:00 00:00:00 Only Unassigned, DANA 350.1.13.10 ity of [place] [facility] 4.2.7.2.686 Wei as [phone] [address] 2020-10-11 2020-10-11 Outpatient R ROS [facility] [id number] Univers 13:00:00 13:00:00 MOSTAFA luis [facility] 2020-10-10 2020-10-10 Outpatient R ROS [facility] [id number] Univers 09:30:00 09:30:00 AFA itaba [facility] 2020-10-10 2020-10-10 Dae MonroeSH[facility] 1.2.840.114 [id number] 00:00:00 00:00:00 Management Miaa R Health 350.1.13.10 Clear 4.2.7.2.686 [place] [phone] Medical 059 Office [facility] 2020-10-10 2020-10-10 Dae Monroe [facility] 1.2.840.114 [id number] Univers 00:00:00 00:00:00 Management Claude Lemus [facility] 350.1.13.10 ity of [place] 4.2.7.2.686 [place] [phone] [address] Office Building 2020-10-07 2020-10-07 Dae SwansonSHIPROCK-[facility] 1.2.840.114 [id number] 00:00:00 00:00:00 Management Zohreh Bah Health 350.1.13.10 Clear 4.2.7.2.686 [place] [phone] [place] [address] Office Building 2020-10-07 2020-10-07 Dae SwansonSHIPROCK[facility] 1.2.840.114 [id number] Univers 00:00:00 00:00:00 Management Zohreh Bah Health 350.1.13.10 ity of [place] 4.2.7.2.686 [place] [id number] [address] Office [facility] 2020-09-12 2020-09-12 Belle [facility] 1.2.840.114 [id number] 00:00:00 00:00:00 Wondiful A Health 350.1.13.10 [place] 4.2.7.2.686 Professio [phone] nal [address] [place] [address] 2020-09-12 2020-09-12 Belle [facility] 1.2.840.114 [id number] Univers 00:00:00 00:00:00 Wondiful A Health 350.1.13.10 ity of [place] 4.2.7.2.686 Wei as Professio [phone] Ct dical [address] Office [facility] One 2020-08-15 2020-08-15 Outpatient R ROS [facility] [id number] Univers 14:30:00 14:30:00 CYNDEE [facility] 2020-08-12 2020-08-12 Outpatient R FIORELLA [facility] [id number] Univers 14:00:00 14:00:00 OBEY [facility] 2020-08-11 2020-08-11 Telephone [facility] 1.2.840.114 [id number] 00:00:00 00:00:00 Wondiful A Health 350.1.13.10 [place] 4.2.7.2.[phone] One 2020-08-11 2020-08-11 Telephone [facility] 1.2.840.114 [id number] Univers 00:00:00 00:00:00 Wondiful A Health 350.1.13.10 ity of [place] 4.2.7.2.686 Wei as Professio [phone] [address] Office [facility] One 2020-08-04 2020-08-04 Patient Doctor STANLEY 1.2.840.114 [id number] Univers 00:00:00 00:00:00 Secure Msg Unassigned, DANA 350.1.13.10 [facility] 4.2.7.2.686 Wei as [phone] [address] 2020-07-28 2020-07-28 Office RENETTA Casarez 1.2.840.114 [id number] Univers 14:46:06 15:01:06 Visit Keith WOODALL 350.1.13.10 i ty of [facility] 4.2.7.2.686 Wei as [phone] [address] 2020-07-28 2020-07-28 Outpatient R MAIRA [facility] [id number] Univers 15:00:00 15:00:00 KEITH smith [facility] 2020-07-25 2020-07-25 [facility] 1.2.840.114 [id number] Univers 16:11:48 16:51:50 Visit Parviz Taylor 350.1.13.10 i ty of [place] 4.2.7.2.686 [place] Profess[place] [phone] [address] 2020-07-25 2020-07-25 Outpatient R KYLE [facility] [id number] Univers 16:15:00 16:15:00 PARVIZ smith [facility] 2020-07-24 2020-07-24 Outpatient R LFY [facility] [id number] Univers 11:30:00 11:30:[address] [facility] 2020-07-21 2020-07-21 Telephone Kyle [facility] 1.2.840.114 [id number] Univers 00:00:00 00:00:00 Parviz [place] 350.1.13.10 i ty of [place] 4.2.7.2.686 [phone] dical nal [address] [facility] 2020-07-19 2020-07-19 Hospital Martin [facility] 1.2.995.030 [id number] Univers 08:17:00 12:04:00 Encounter Shun [facility] 350.1.13.10 ity of [place] 4.2.7.2.686 [facility] [phone] [address] ([facility]) 2020-07-19 2020-07-19 Surgery Salazar [facility] 1.2.840.114 [id number] Univers 09:47:00 11:03:00 Shun SPECIALTY 350.1.13.10 ity of Vincent CARE 4.2.7.2.686 [facility] AT [phone] Ct dical VICTORY 020 [facility] 2020-07-14 2020-07-14 Hospital Timi [facility] 1.2.329.245 [id number] Univers 08:00:00 23:59:00 Encounter Wondiful A Mobile 350.1.13.10 ity of [place] 4.2.7.2.686 [facility] [phone] [facility] [address] 2020-07-14 2020-07-14 Laboratory Only, Adc Test [facility] 1.2.840. 114 [id number] Univers 08:06:04 08:21:04 Only Rogelio Capellanton 350.1.13. 10 ity of SalazarDoc López Robbins 4.2.7.2.68 6 [facility] [phone] [facility] [address] 2020-07-14 2020-07-14 Outpatient R TIMI [facility] [id number] Univers 00:00:00 00:00:[address] ity o f [facility] 2020-07-06 2020-07-06 Case Timi [facility] 1.2.840.114 [id number] Univers 00:00:00 00:00:00 Management Wondiful A Health 350.1.13.10 ity of [place] 4.2.7.2.686 Wei as Professio [phone] Ct dical nal [address] [place] Office Building One 2020-07-05 2020-07-05 Outpatient R DOC SALAZAR [facility] SUU [id number] Univers 13:00:00 13:00:[address] [facility] 2020-07-05 2020-07-05 Telephone Kyle [facility] 1.2.840.114 [id number] Univers 00:00:00 00:00:00 Parviz Taylor 350.1.13.10 i ty of [place] 4.2.7.2.686 [place] Profess[place] [phone] Ct dical nal 204 [address] Building 2020-07-05 2020-07-05 Prep For Doc Salazar [facility] 1.2.591.120 [id number] Univers 00:00:00 00:00:00 Surgery Shun [facility] 350.1.13.10 it y of [place] 4.2.7.2.686 [place] [phone] [facility] [address] Office Building 2020-07-04 2020-07-04 Office [facility] 1.2.840.114 [id number] Univers 14:40:30 15:10:30 Visit Mostafa Health 350.1.13.10 it y of Jeancarlos Bates [place] 4.2.7.2.686 [place] [facility] [place] [phone] [facility] [address] Office Building 2020-07-04 2020-07-04 Outpatient R ROS [facility] [id number] Univers 15:00:00 15:00:[address] [facility] 2020-07-04 2020-07-04 Orders Doctor ANGEL 1.2.840.114 [id number] Univers 00:00:00 00:00:00 Only Unassigned, DANA 350.1.13.10 ity of [place] [facility] 4.2.7.2.686 Wei as [phone] [facility] [address] 2020-07-03 2020-07-03 Out[facility] [id number] Univers 11:00:00 11:00:[address] [facility] 2020-06-30 2020-06-30 [facility] 1.2.413.407 [id number] Univers 15:29:00 23:59:00 Encounter Wondiful A [place] 350.1.13.10 ity of [place] 4.2.7.2.686 [place] [phone] [facility] [address] 2020-06-30 2020-06-30 [facility] 1.2.845.069 [id number] Univers 15:26:35 15:28:00 Encounter Wondiful A [place] 350.1.13.10 ity of [place] 4.2.7.2.686 [facility] [phone] [facility] [address] 2020-06-30 2020-06-30 Director Life Sales Lab, Adc Fam Pob I [facility] 1.2. 840.114 [id number] Univers 14:54:37 15:14:37 Visit Rogelio Capellan [facility] 350.1.13.1 0 ity of [place] 4.2.7.2.686 Wei as Professio [phone] Ct dical nal [address] Office Building One 2020-06-30 2020-06-30 Office [facility] 1.2.840.114 [id number] Univers 13:54:38 14:46:39 Visit Wondiful A Health 350.1.13.10 ity of [place] 4.2.7.2.686 Wei as Professio [phone] Ct dical nal [address] [place] Office Building One 2020-06-30 2020-06-30 Out[facility] [id number] Univers 14:00:00 14:00:00 [address] ity o f [facility] 2020-06-30 2020-06-30 Laboratory Only, Adc Test [facility] 1.2.840. 114 [id number] Univers 09:54:32 10:09:32 Only Dagoberto Mason 350.1.13.10 ity of [place] 4.2.7.2.686 [place] [facility] [phone] [facility] [address] 2020-06-29 2020-06-29 Telephone Timi PAPATRICIA 1.2.840.114 [id number] Univers 00:00:00 00:00:00 Wondiful A Health 350.1.13.10 ity of [place] 4.2.7.2.686 Wei as Professio [phone] Ct dical nal [address] [place] Office [facility] One 2020-06-22 2020-06-22 Prep For Doc Salazar [facility] 1.2.040.348 [id number] Univers 00:00:00 00:00:00 Surgery Shun [facility] 350.1.13.10 it y of [facility] 4.2.7.2.686 [facility] [phone] [facility] Medical [address] Office [facility] 2020-06-22 2020-06-22 Telephone Doc Salazar 1.2.840.114 [id number] Univers 00:00:00 00:00:00 Shun DANA 350.1.13.10 it y of [facility] 4.2.7.2.686 Wei as [phone] [facility] [address] 2020-06-17 2020-06-17 Orders Doctor ANGEL 1.2.840.114 [id number] Univers 00:00:00 00:00:00 Only Unassigned, DANA 350.1.13.10 ity of [place] [facility] 4.2.7.2.686 Wei as [phone] [facility] [address] 2020-06-16 2020-06-16 Pre Visit Timi [facility] 1.2.840.114 [id number] Univers 00:00:00 00:00:00 Outreach Wondiful A Health 350.1.13.10 ity of [place] 4.2.7.2.686 Wei as Professio [phone] Ct dical nal [address] [place] Office [facility] One 2020-06-09 2020-06-09 Orders Doctor ANGEL 1.2.840.114 [id number] Univers 00:00:00 00:00:00 Only Unassigned, DANA 350.1.13.10 ity of [place] [facility] 4.2.7.2.686 Wei as [phone] [address] 2020-06-07 2020-06-07 Telephone Timi [facility] 1.2.840.114 [id number] Univers 00:00:00 00:00:00 Wondiful A Health 350.1.13.10 ity of [place] 4.2.7.2.686 Wei as Professio [phone] Ct dical nal [address] [place] Office Building One 2020-05-30 2020-05-30 Patient Georgi [facility] 1.2.840.114 [id number] Univers 00:00:00 00:00:00 Outreach Sukh PRIMARY 350.1.13.10 i ty of [facility] 4.2.7.2.686 [place] PAV[place] [phone] Ct dical [address] 2020-05-23 2020-05-23 Office [facility] 1.2.840.114 [id number] Univers 15:41:02 17:38:10 Visit Wondiful A Health 350.1.13.10 ity of [place] 4.2.7.2.686 Wei as Professio [phone] Ct dicms nal [address] Office [facility] One 2020-05-23 2020-05-23 Outpatient R TIMI [facility] [id number] Univers 15:45:00 15:45:[address] ity o f [facility] 2020-05-19 2020-05-19 Director Life Sales 2, Adc Lab [facility] 1.2.840.114 [id number] Univers 11:35:49 11:50:49 Visit Parviz Palomino 350.1.13.10 ity of [place] 4.2.7.2.686 [place] Professio [phone] Ct dical nal 353 [facility] 2020-05-19 2020-05-19 Office Kyle [facility] 1.2.840.114 [id number] Univers 09:51:40 10:06:40 Visit Parviz Taylor 350.1.13.10 i ty of [place] 4.2.7.2.686 [place] Profess[place] [phone] Ct lety topete 204 [facility] 2020-05-19 2020-05-19 Outpatient R KYLE [facility] [id number] Univers 10:00:00 10:00:00 PARVIZ ity [facility] 2020-05-18 2020-05-18 Telephone [facility] 1.2.840.114 [id number] Univers 00:00:00 00:00:00 Wondiful A Health 350.1.13.10 ity of [place] 4.2.7.2.686 Wei as Professio [phone] Ct lety topete [address] [place] [address] One 2020-05-17 2020-05-17 Patient Timi [facility] 1.2.840.114 [id number] Univers 00:00:00 00:00:00 Secure Msg Wondiful A Health 350.1.13.10 ity of [place] 4.2.7.2.686 Wei as Professio [phone] Ct lety topete [address] [place] [address] One 2020-05-16 2020-05-16 Telephone [facility] 1.2.840.114 [id number] Univers 00:00:00 00:00:00 Wondiful A Health 350.1.13.10 ity of [place] 4.2.7.2.686 Wei as Professio [phone] Ct anitams madai [address] [place] [address] One 2020-05-12 2020-05-12 Outpatient R KYLE [facility] [id number] Univers 10:30:00 10:30:00 [facility] 2020-04-27 2020-04-27 Telephone [facility] 1.2.840.114 [id number] Univers 00:00:00 00:00:00 Wondiful A Health 350.1.13.10 ity of [place] 4.2.7.2.686 Wei as Professio [phone] Ct anita[address] One 2020-04-12 2020-04-12 Telephone [facility] 1.2.840.114 [id number] Univers 00:00:00 00:00:00 [facility] 350.1.13.10 i ty of [place] 4.2.7.2.686 [place] Professio [phone] Ct dical [facility] 204 [facility] 2020-04-07 2020-04-07 Hospital Kyle [facility] 1.2.840.114 [id number] Univers 09:30:00 23:59:00 Encounter [facility] 350.1.13.10 ity of [facility] 4.2.7.2.686 [place] [phone] [facility] [address] 2020-04-07 2020-04-07 Outpatient R [facility] [id number] Univers 00:00:00 00:00:00 PARVIZ ity [facility] 2020-03-07 2020-03-07 Office [facility] 1..840.114 [id number] Univers 10:55:54 12:03:08 Visit [facility] 350.1.13.10 i ty of [place] 4.2.7.2.686 [place] Professio [phone] Ct dic[address] 2020-03-07 2020-03-07 Outpatient R [facility] [id number] Univers 11:00:00 11:00:00 PARVIZ ity [facility] 2020-03-07 2020-03-07 Orders Doctor ANGEL 1..840.114 [id number] Univers 00:00:00 00:00:00 Only Unassigned, DANA 350.1.13.10 ity of [place] [facility] 4.2.7.2.686 Wei as [phone] [facility] [address] 2020-02-08 2020-02-08 Outpatient R [facility] [id number] Univers 08:00:00 08:00:00 PARVIZ ity [facility] 2020-01-07 2020-01-07 Director Life Sales Lab, Adc Fam Pob I [facility] 1.. 840.114 [id number] Univers 09:59:05 10:19:05 Visit Rogelio Capell[facility] 350.1.13.1 0 ity of [place] 4.2.7.2.686 Wei as Professio [phone] Ct dical nal [address] Office Building One 2020-01-07 2020-01-07 Office Timi [facility] 1.2.840.114 [id number] Univers 08:40:20 10:01:04 Visit Rogelio Zepeda Health 350.1.13.10 ity of [place] 4.2.7.2.686 Wei as Professio [phone] Ct dicms nal [address] Office Building One 2020-01-07 2020-01-07 Outpatient R TIMI [facility] [id number] Univers 09:00:00 09:00:00 DANYNUNOMERYL ity o f [facility] Results Test Description Test Time Test Comments Results Result Comments Source POCT URINALYSIS, INSTRUMENT 2022-03-26 17:59:00 Test Item Value Reference Range Interpretation Comme nts POCT U SP GRAV (test code = 3255) 1.020 mg/dl 1.005-1.025 POCT PH U (test code = 3254) 6.0 mg/dl 5-8 POCT U LEUK EST (test code = 3263) Negative Negative - Negative POCT U NIT (test code = 3262) Negative Negative - Negative POCT U PROT (test code = 3259) Negative Negative - Negative POCT U GLU (test code = 3256) Negative Negative - Negative POCT U KETONE (test code = 3258) Negative Negative - Negative POCT U UROBILI (test code = 3260) 1.0 mg/dl 0.2-1 POCT U BILI (test code = 3261) Negative Negative - Negative POCT U BLD (test code = 3257) Negative Negative - Negative POCT U COLOR (test code = 3266) Yellow POCT U APPEAR (test code = 3267) Clear Lab Interpretation (test code = 33467-0) [facility]normal [facility], [id number] 17:59:00 Test Item Value Reference Range Interpretation Comments POCT U SP GRAV (test code = 1.020 mg/dl 1.005-1.025 3255) POCT PH U (test code = 3254) 6.0 mg/dl 5-8 POCT U LEUK EST (test code = Negative Negative - Negative 3263) POCT U NIT (test code = 3262) Negative Negative - Negative POCT U PROT (test code = Negative Negative - Negative 325) POCT U GLU (test code = 3256) Negative Negative - Negative POCT U KETONE (test code = Negative Negative - Negative 3258) POCT U UROBILI (test code = 1.0 mg/dl 0.2-1 326) POCT U BILI (test code = Negative Negative - Negative 326) POCT U BLD (test code = 3257) Negative Negative - Negative POCT U COLOR (test code = Yellow 326) POCT U APPEAR (test code = Clear 3266) Lab Interpretation (test code Abnormal = 80085-2) [facility]
--- NOTE | 2022-10-07 09:35 | EDPHYS ---
Physician Documentation [facility] Name: Oscar Byrd Age: 72 yrs Sex: Male : 1950 Arrival Date: 10/07/2022 Time: 09:02 Bed 13 Private MD: KATIE Physician Guille Velasco HPI: 10/07 09:31 This 72 yrs old Male presents to ER via Ambulatory with complaints of Urinary patsy Retention. 09:31 The patient presents with urinary symptoms, unable to void. Onset: The symptoms/episode patsy began/occurred last night. Modifying factors: The symptoms are alleviated by nothing, the symptoms are aggravated by nothing. Associated signs and symptoms: The patient has no apparent associated signs or symptoms. Severity of symptoms: At their worst the symptoms were moderate. The patient has not experienced similar symptoms in the past. Historical: - Allergies: 09:14 No Known Allergies; hb - Home Meds: 09:14 Metoprolol Tartrate Oral [Active]; aspirin 81 mg Oral tablet,chewable daily [Active]; hb atorvastatin oral [Active]; - PMHx: 09:14 Hypertension; hb - PSHx: 09:14 None; hb - Immunization history:: Adult Immunizations up to date. - Social history:: Smoking status: Patient denies any tobacco usage or history of. ROS: 09:32 Constitutional: Negative for fever, chills, and weight loss, Eyes: Negative for injury, patsy pain, redness, and discharge, ENT: Negative for injury, pain, and discharge, Neck: Negative for injury, pain, and swelling, Cardiovascular: Negative for chest pain, palpitations, and edema, Respiratory: Negative for shortness of breath, cough, wheezing, and pleuritic chest pain, Abdomen/GI: Negative for abdominal pain, nausea, vomiting, diarrhea, and constipation, Back: Negative for injury and pain, MS/Extremity: Negative for injury and deformity, Skin: Negative for injury, rash, and discoloration, Neuro: Negative for headache, weakness, numbness, tingling, and seizure, Psych: Negative for depression, anxiety, suicide ideation, homicidal ideation, and hallucinations, Allergy/Immunology: Negative for hives, rash, and allergies, Endocrine: Negative for neck swelling, polydipsia, polyuria, polyphagia, and marked weight changes, Hematologic/Lymphatic: Negative for swollen nodes, abnormal bleeding, and unusual bruising. 09:32 : Positive for small amounts, difficulty urinating. Exam: 09:32 Constitutional: This is a well developed, well nourished patient who is awake, alert, patsy and in no acute distress. Head/Face: Normocephalic, atraumatic. Eyes: Pupils equal round and reactive to light, extra-ocular motions intact. Lids and lashes normal. Conjunctiva and sclera are non-icteric and not injected. Cornea within normal limits. Periorbital areas with no swelling, redness, or edema. ENT: Nares patent. No nasal discharge, no septal abnormalities noted. Tympanic membranes are normal and external auditory canals are clear. Oropharynx with no redness, swelling, or masses, exudates, or evidence of obstruction, uvula midline. Mucous membranes moist. Neck: Trachea midline, no thyromegaly or masses palpated, and no cervical lymphadenopathy. Supple, full range of motion without nuchal rigidity, or vertebral point tenderness. No Meningismus. Chest/axilla: Normal chest wall appearance and motion. Nontender with no deformity. No lesions are appreciated. Cardiovascular: Regular rate and rhythm with a normal S1 and S2. No gallops, murmurs, or rubs. Normal PMI, no JVD. No pulse deficits. Respiratory: Lungs have equal breath sounds bilaterally, clear to auscultation and percussion. No rales, rhonchi or wheezes noted. No increased work of breathing, no retractions or nasal flaring. Abdomen/GI: Soft, non-tender, with normal bowel sounds. No distension or tympany. No guarding or rebound. No evidence of tenderness throughout. Back: No spinal tenderness. No costovertebral tenderness. Full range of motion. Skin: Warm, dry with normal turgor. Normal color with no rashes, no lesions, and no evidence of cellulitis. MS/ Extremity: Pulses equal, no cyanosis. Neurovascular intact. Full, normal range of motion. Neuro: Awake and alert, GCS 15, oriented to person, place, time, and situation. Cranial nerves II-XII grossly intact. Motor strength 5/5 in all extremities. Sensory grossly intact. Cerebellar exam normal. Normal gait. Psych: Awake, alert, with orientation to person, place and time. Behavior, mood, and affect are within normal limits. 09:32 : CVA tenderness, is absent, Male external genitalia: normal, Bladder: tenderness, that is moderate, Sexual behavior: the patient is sexually active, and reports a single partner. Vital Signs: 09:14 BP 141 / 89; Pulse 69; Resp 16; Temp 98(O); Pulse Ox 100% on R/A; Weight 85.28 kg; hb Height 5 ft. 10 in. ; Pain 8/10; 10:00 BP 128 / 79; Pulse 89; Resp 16; Pulse Ox 98% on R/A; iw 09:14 Body Mass Index 26.97 (85.28 kg, 177.8 cm) hb 09:14 Pain Scale: Adult hb MDM: 09:08 Patient medically screened. patsy 09:34 Differential diagnosis: nonspecific abdominal pain, UTI, urinary retention, patsy prostatitis, urethritis. Data reviewed: vital signs, nurses notes. Consideration of Admission/Observation Escalation of care including admission/observation considered. I considered the following discharge prescriptions or medication management in the emergency department Medications were administered in the Emergency Department. See MAR. Care significantly affected by the following chronic conditions: Hypertension. 10/07 09:16 Order name: [facility] 10/07 09:16 Order name: Connors; Complete Time: 09:39 patsy 10/07 09:16 Order name: Connors Leg Bag; Complete Time: 09:54 patsy 10/07 09:16 Order name: Misc. Order: PLEASE NOTE PVR; Complete Time: 09:54 patsy Administered Medications: 09:54 Drug: Ciprofloxacin PO 500 mg Route: PO; iw 10:07 Follow up: Response: No adverse reaction iw 09:54 Drug: Flomax PO 0.4 mg Route: PO; iw 10:07 Follow up: Response: No adverse reaction iw Disposition Summary: 10/07/22 09:35 Discharge Ordered Location: Home patsy Problem: new patsy Symptoms: have improved patsy Condition: Stable patsy Diagnosis - Other retention of urine patsy - Retention of urine, unspecified patsy Followup: patsy - With: Private Physician - When: 2 - 3 days - Reason: Recheck today's complaints, Continuance of care, Re-evaluation by your physician Followup: patsy - With: Carlos Reed MD - When: 2 - 3 days - Reason: Recheck today's complaints, Re-evaluation by your physician Discharge Instructions: - Discharge Summary Sheet patsy - Indwelling Urinary Catheter Care, Adult patsy - Acute Urinary Retention, Male patsy - Acute Urinary Retention, Male, [id number] patsy - Indwelling Urinary Catheter Care, Adult, [id number] Forms: - Medication Reconciliation Form [facility] - Thank You Letter patsy - Antibiotic Education patsy - Prescription Opioid Use patsy - Patient Portal Instructions [facility] Prescriptions: - Flomax 0.4 mg Oral capsule - take 1 capsule by ORAL route every day at bedtime; 30 capsule; Refills: 0, [facility] Product Selection Permitted - Cipro 250 mg Oral Tablet - take 1 tablet by ORAL route every 12 hours; 14 tablet; Refills: 0, Product [facility] Selection Permitted Signatures: Dispatcher [employer] EDGuille Canchola MD MD cha Williams, Irene, Mimi Parmar RN, RN RN
--- NOTE | 2022-10-07 09:35 | ER ---
Nurse's Notes [facility] Name: Oscar Byrd Age: 72 yrs Sex: Male : 1950 Arrival Date: 10/07/2022 Time: 09:02 Bed 13 Private MD: Diagnosis: Other retention of urine;Retention of urine, unspecified Presentation: 10/07 09:14 Chief complaint: Unable to urinate today. Coronavirus screen: At this time, the client hb does not indicate any symptoms associated with coronavirus-19. Ebola Screen: No symptoms or risks identified at this time. Initial Sepsis Screen: Does the patient meet any 2 criteria? No. Patient's initial sepsis screen is negative. Does the patient have a suspected source of infection? No. Patient's initial sepsis screen is negative. Risk Assessment: Do you want to hurt yourself or someone else? Patient reports no desire to harm self or others. Onset of symptoms was October 07, 2022. 09:14 Method Of Arrival: Ambulatory hb 09:14 Acuity: [place] 3 hb Triage Assessment: 10:00 General: Appears in no apparent distress. Behavior is calm, cooperative. iw Historical: - Allergies: 09:14 No Known Allergies; hb - Home Meds: 09:14 Metoprolol Tartrate Oral [Active]; aspirin 81 mg Oral tablet,chewable daily [Active]; hb atorvastatin oral [Active]; - PMHx: 09:14 Hypertension; hb - PSHx: 09:14 None; hb - Immunization history:: Adult Immunizations up to date. - Social history:: Smoking status: Patient denies any tobacco usage or history of. Screenin:39 [facility] ED Fall Risk Assessment (Adult) Score/Fall Risk Level 0 - 2 = Low Risk. Abuse iw screen: Denies threats or abuse. Denies injuries from another. Nutritional screening: No deficits noted. Tuberculosis screening: No symptoms or risk factors identified. Assessment: 09:40 General: Appears uncomfortable, Behavior is calm, cooperative. Pain: Complains of pain iw in suprapubic area. Neuro: Level of Consciousness is awake, alert, obeys commands, Oriented to person, place, time, situation, Moves all extremities. Full function. Cardiovascular: Patient's skin is warm and dry. Respiratory: Respiratory effort is even, unlabored, Respiratory pattern is regular. GI: Abdomen is distended. : Reports urinary retention. Derm: Skin is intact, is healthy with good turgor. Musculoskeletal: Range of motion: intact in all extremities. Vital Signs: 09:14 BP 141 / 89; Pulse 69; Resp 16; Temp 98(O); Pulse Ox 100% on R/A; Weight 85.28 kg; hb Height 5 ft. 10 in. ; Pain 8/10; 10:00 BP 128 / 79; Pulse 89; Resp 16; Pulse Ox 98% on R/A; iw 09:14 Body Mass Index 26.97 (85.28 kg, 177.8 cm) hb 09:14 Pain Scale: Adult hb ED Course: 09:07 Patient arrived in ED. ts1 09:08 Guille Velasco MD is Attending Physician. patsy 09:14 Triage completed. hb 09:15 Arm band placed on. hb 09:34 Carlos Reed MD is Referral Physician. patsy 09:39 Connors cath inserted, using sterile technique, 16 Fr., by md, balloon inflated. iw 09:40 Loraine Soria RN is Primary Nurse. eh3 09:40 Patient has correct armband on for positive identification. iw 10:00 Provided Education on: catheter care, leg bag replacement. iw 10:07 No provider procedures requiring assistance completed. Patient did not have IV access iw during this emergency room visit. 10:08 Primary Nurse role handed off by Loraine Soria RN iw 10:08 Yumiko Beebe, CELSO is Primary Nurse. iw Administered Medications: 09:54 Drug: Ciprofloxacin PO 500 mg Route: PO; iw 10:07 Follow up: Response: No adverse reaction iw 09:54 Drug: Flomax PO 0.4 mg Route: PO; iw 10:07 Follow up: Response: No adverse reaction iw Medication: 10:00 VIS not applicable for this client. iw Outcome: 09:35 Discharge ordered by . [facility] 10:07 Discharged to home ambulatory, with family. iw 10:07 Condition: good 10:07 Discharge instructions given to patient, family, Instructed on discharge instructions, follow up and referral plans. medication usage, Demonstrated understanding of instructions, follow-up care, medications, Prescriptions given X 2. 10:08 Patient left the ED. iw Signatures: Guille Velasco MD MD cha Williams, Irene, CELSO [place] Mimi Sutherland RN RN hb Hall, Loraine, RN RN eh3 Kim Ley, [facility] PAS ts1
[2022-10-07] MEDS ORDERED: CIPROFLOXACIN HCL 500 MG TAB ONE (09:56)
[2022-10-07] MEDS ORDERED: TAMSULOSIN 0.4 MG SR CAP ONE (09:56)
[2022-10-07 10:00] LABS: Specific Gravity 1.006 (1.005-1.030); Urine Bacteria None Seen /HPF (<20); Urine Bilirubin NEGATIVE (Negative); Urine Blood 2+ (Negative); Urine Clarity Clear (Clear); Urine Color Colorless (Yellow); Urine Glucose NEGATIVE (Negative); Urine Protein NEGATIVE (Negative); Urine RBC <5 /HPF (None Seen); Urine Urobilinogen Normal (Normal)
[2022-10-07 10:13] VITALS: BP 141/89; TEMP 98; O2SAT 100
== END 2022-10-07 10:08 | disposition home or self-care (01) ==
LOC: ER 09:02
DX: R33.8 Other retention of urine (principal); I10 Essential (primary) hypertension; Z79.82 Long term (current) use of aspirin
CPT/HCPCS: 51702; 81001; 99284